=== PATIENT | female | born 1960 | race African-American/Black ===

== ENCOUNTER 2018-12-10 14:08 | Emergency (ER) | payer BC ==
[~2018-12-10] VITALS: Ht 165.1 cm; Wt 90.7 kg
[~2018-12-10 14:08] MED LIST: AMARYL4 MG PO; AMLODIPINE BESY10 MG PO; BENECALORI7.5 KCAL/1 PO; BISACODYL SUPP10 MG RECTAL; BUTALB-APAP-CA1 EACH PO; CARVEDILOL12.5 MG PO; CELEBREX 200 M200 M1 PO; CITRATE OF MAG296 ML PO; DIFLUCAN50 MG PO; GLIMEPIRIDE4 MG PO; HYDROCODONE-AP1 EAC6 PO; IBUPROFEN 600600 M1 PO; KEFLEX500 MG PO; LEVEMIR SUBQ; LEXAPRO 10 MG T10 M1 PO; LIPITOR40 MG PO; LISINOPRIL20 MG PO; LISINOPRIL5 MG PO; MAXZIDE-25 MG1 EACH PO; NITROGLYCERIN0.4 MG SUBLING; NITROSTAT0.4 MG SUBLING; PLAVIX 75 MG TA75 M1 PO; TESSALON PERLE100 MG PO; TUSSIONEX PENN115 ML PO; VIMPAT200 MG PO; XANAX 1 MG TABLE1 MG PO; ZOFRAN ODT4 MG DISSOLVE; ZOFRAN ODT4 MG PO
[2018-12-10] MEDS ORDERED: NORFLEX100 MG PO (15:37)
[2018-12-10] MEDS ORDERED: IBUPROFEN 600600 M1 PO (15:38)
[2018-12-10 15:59] VITALS: BP 203/98
== END 2018-12-10 16:00 | disposition home or self-care (01) ==
LOC: ER 14:08
DX: S39.012A Strain of muscle, fascia and tendon of lower back, initial encounter (principal); S86.811A Strain of other muscle(s) and tendon(s) at lower leg level, right leg, initial encounter; M25.551 Pain in right hip; G40.909 Epilepsy, unspecified, not intractable, without status epilepticus; E11.9 Type 2 diabetes mellitus without complications; I10 Essential (primary) hypertension; F41.9 Anxiety disorder, unspecified; Z90.49 Acquired absence of other specified parts of digestive tract; Z90.710 Acquired absence of both cervix and uterus; Z95.5 Presence of coronary angioplasty implant and graft; Z88.1 Allergy status to other antibiotic agents; Z88.5 Allergy status to narcotic agent; V89.2XXA Person injured in unspecified motor-vehicle accident, traffic, initial encounter; Y93.89 Activity, other specified; Y92.89 Other specified places as the place of occurrence of the external cause; Y99.8 Other external cause status

== ENCOUNTER 2019-03-31 14:46 | Inpatient (IN) | payer BC ==
[~2019-03-31] VITALS: Ht 165.1 cm; Wt 96.2 kg
[2019-03-31 14:15] VITALS: BP 191/83
[~2019-03-31 14:46] MED LIST changes: +NORCO 5-325 TA1 EAC1 PO; +NORFLEX100 MG PO; +TRESIBA100 UNIT/1 SUBQ
[2019-03-31 19:44] VITALS: BP 202/96
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
--- NOTE | 2019-03-31 20:14 | NUR ---
ASSUMED CARE @ 19:15, UP AD LARISA IN DAY ROOM AND HALLWAYS. COOPERATD WITH ASSESSMENT, DENIES PAIN, DENIES SI AND HI, DENIES HALLUCINATIONS. HRRR, LUNGS CTA, ABD NOTRMOACTIVE, REPORTS BM YESTERDAY. WILL CONTINUE TO MONITOR Q 12 MINUTES FOR PATIENT SAFETY.
--- NOTE | 2019-03-31 22:33 | NUR ---
FSBS 158 @ 21:16, GIVEN 30 U OF INSULIN GLARGINE (LANTUS). TOOK PO MEDS WHOLE WITH WATER, RETIRED TO BED. MESSAGE RELAYED THAT BROTHER CALLED, BUT DID NOT HAVE PATIENT'S CODE. CALL CAME IN AT 2200, PATIENT EXPLAINED PHONE CALL TIME RESTRICTIONS AND SHE AGREED TO CALL BROTHER IN THE MORNING. IN BED, ALARM SET, BED IN LOW POSITION, WILL CONTINUE TO MONITOR Q 12 MINTUES FOR PATIENT SAFETY.
[2019-03-31 23:11] VITALS: BP 202/96
--- NOTE | 2019-04-01 05:46 | NUR ---
SLEPT 6.6 HOURS OVERNIGHT.
[2019-04-01 08:00] VITALS: BP 183/92
--- NOTE | 2019-04-01 16:08 | NUR ---
PATIENT EXPRESSES SADNESS R/T LACK OF COMMUNICATION WITH CHILDREN. STATES SHE DOES NOT WANT TO CRY BECAUSE SHE THINKS THE STAFF WILL MAKE HER STAY LONGER. EDUCATED PATIENT ON SERVICES POST DISCHARGE AND AVAILABILITY OF PEOPLE TO TALK TO ABOUT CONCERNS. PATIENT HAD PT EVAL THIS SHIFT. FRIEND VISITED WITH PATIENT. PATIENT PARTICIPATED IN GROUPS THIS SHIFT AND WAS IN DINING ALATORRE VISITING WITH OTHER PATIENTS THROUGHOUT SHIFT. WENT TO ROOM ONLY FOR RESTROOM & TO CHANGE INTO FRESH CLOTHES.
[2019-04-01 21:06] VITALS: BP 230/172
--- NOTE | 2019-04-02 02:47 | NUR ---
ASSUMED CARE @ 19:15. BLOOD PRESSURE HIGH, ORDER OBTAINED FOR CLONADINE 0.2 MG BID, GAVE ONE DOSE @ 21:30, PRN HYDRALAUZINE 50 MG Q 6 HOURS PRN FOR SYSTOLIC GREATER THAN 160. ALSO MIRILAX PRN DAILY @ HS 17GM DOSE.
[2019-04-02 05:45] VITALS: BP 230/172
--- NOTE | 2019-04-02 06:13 | NUR ---
SLEPT 7.6 HOURS OVERNIGHT.
[2019-04-02 09:04] VITALS: BP 172/82
[2019-04-02 10:32] VITALS: BP 172/82
[2019-04-02] MEDS ORDERED: CATAPRES0.1 MG PO (10:37)
--- NOTE | 2019-04-02 10:38 | NUR ---
ASSUMED CARE THIS MORNING AT 0700. PT. IN BED BUT GOT UP AND INTO THE DINING ROOM FOR BREAKFAST. COOPERATIVE WITH TAKING HER MEDICATIONS WITHOUT DIFFICUTLY. LUNGS CTA, HRR. NO LE EDEMA NOTED. WAS ON THE UNIT FOR MONING MEETING. ATTENDED MORNING GROUP THIS MORNING. INFORMED THIS PROPERTY MAINTENANCE SUPERVISOR THAT THE PT. WOULD BE DISCHARGED TO HER HOME TODAY ABOUT 11:00 AM.
[2019-04-02] MEDS ORDERED: LANTUS100 UNIT/M SUBQ (10:40)
[2019-04-02] MEDS ORDERED: AMARYL4 MG PO (10:41)
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
[2019-04-02 11:44] VITALS: BP 172/82
--- NOTE | 2019-04-02 14:20 | NUR ---
Patient Name: KOBY MCCARTHY Admission Date: 03/31/19 DISCHARGE PLAN: Pt will d/c home Care Assessment: Pt was assessed by Dr. Alanis, and diagnosed with Major Depressive Disorder Level II Assessment: None Transportation: Pt will will be transported by [employer]. Special Instructions/Notes: Pt will need appointment with [facility] DISCHARGE TO FACILITY: Facility: Phone: Fax: Address: Contact Name: Phone: PCP: STEPHANY Psychiatrist: [facility] on March at 10:30am
--- NOTE | 2019-04-04 19:19 | D ---
[facility] [place] [address] DISCHARGE SUMMARY Name: KOBY MCCARTHY Room #: 522B-B [facility] IN M.R.#: [id number] Admission: 03/31/19 Attend Phys: Kyle Alanis DO Discharge: 04/02/19 Date of : 58 Report #: [id number] THIS REPORT FOR: //name// CC: Kyle Alanis Elisa Beyer DATE OF SERVICE: 04/02/2019 INPATIENT PSYCHIATRIC DISCHARGE SUMMARY ATTENDING PHYSICIAN: Kyle Alanis DO. COMMAND AND CONTROL OFFICER: Mono Francisco MD DISCHARGE DIAGNOSIS: Major depressive disorder, single episode, severe degree. MEDICAL COMORBIDITIES: Numerous and include obesity, coronary artery disease, hypertension, diabetes mellitus type 2, history of generalized seizure disorder. DIET: Diabetic 1800-calorie diet. MEDICATIONS: Clonidine 0.2 mg p.o. b.i.d. for hypertension, insulin glargine but she was taking 20 units subQ at bedtime, glimepiride 4 mg p.o. daily for breakfast, lacosamide which is Vimpat 200 mg p.o. b.i.d. for seizure disorder, Coreg 12.5 mg p.o. b.i.d., lisinopril 20 mg p.o. daily. It should be noted most of those were home medications. I had intended to start the patient on antidepressant, however, the patient was insistent on discharge in 2 days' time, so I will defer that to PHP program she will be going to. She has an appointment at [facility] on 04/07/2019 at 10:30. REASON FOR ADMISSION: Reported through suicide hotline she was suicidal, so directed to the ER. HOSPITAL COURSE: The patient was admitted to the Adult Psychiatry Unit. The patient was in somewhat of a frustrated state. She is currently . She is estranged from her 2 adult sons. 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 Spoke with her sister, there is a firearm and ammunition in her residence. The patient agreed for the sister to remove it and the sister did secure it. Emergency Room pharmacist called in to advise that, much of the individual sessions with the patient was spent discussing the steps, but I would recommend her taking given that she needs to stay busy, she needs to develop social support system, things such as this. [facility] [address] [place] [address] DISCHARGE SUMMARY Name: KOBY MCCARTHY Gurdeep Room #: 522B-B [facility] IN ..#: [id number] Admission: 03/31/19 Attend Phys: Kyle Alanis DO Discharge: 04/02/19 Date of : 58 Report #: [id number] LABORATORY DATA: Laboratories this admission are as follows: CMP within normal limits, except GFR 77. CBC was grossly normal. Urinalysis was grossly negative. PHYSICAL EXAMINATION: VITAL SIGNS: On the day of discharge, temperature 36.6, pulse 52, respirations 12, BP 172/82. MENTAL STATUS EXAMINATION: This is a well-developed, black female, appearing stated age. Attention intact. Concentration intact. Speech is normal in rate, volume, tone. Thought process is linear and goal directed. Thought content focused on discharge. No psychomotor agitation. No psychomotor retardation. Denied SI, HI. Some helplessness, some hopelessness. Denied homicidal intent or plan, suicidal intent or plan. Memory not formally tested. Insight limited. Judgment fair to limited. Fund of knowledge, no greater than average. PROGNOSIS: For this patient is guarded and will depend on her Wellness pursuits as well as psychiatric followup likely. <ELECTRONICALLY SIGNED> By: Kyle Alanis DO 04/04/19 1919 [id number] 0208 Kyle Alanis DO /nt
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
== END 2019-04-02 14:54 | disposition home or self-care (01) | DRG 885 ==
LOC: SBH 14:46
PROVIDERS: ADMIT Psychiatry & Neurology Psychiatry
DX: F32.2 Major depressive disorder, single episode, severe without psychotic features (principal); R45.851 Suicidal ideations; F41.9 Anxiety disorder, unspecified; F68.8 Other specified disorders of adult personality and behavior; E66.9 Obesity, unspecified; E11.9 Type 2 diabetes mellitus without complications; G40.909 Epilepsy, unspecified, not intractable, without status epilepticus; I25.10 Atherosclerotic heart disease of native coronary artery without angina pectoris; I25.2 Old myocardial infarction; Z95.5 Presence of coronary angioplasty implant and graft; Z83.3 Family history of diabetes mellitus; Z82.49 Family history of ischemic heart disease and other diseases of the circulatory system; Z90.710 Acquired absence of both cervix and uterus; Z90.49 Acquired absence of other specified parts of digestive tract; Z88.6 Allergy status to analgesic agent; Z88.1 Allergy status to other antibiotic agents; Z68.35 Body mass index [BMI] 35.0-35.9, adult
CPT/HCPCS: 10880

== ENCOUNTER 2020-01-04 09:30 | Inpatient (IN) | payer BC, OTHER ==
[~2020-01-04] VITALS: Ht 165.1 cm; Wt 71.9 kg
--- NOTE | ~2020-01-04 | EMS ---
[address] [address] EMS Patient Care Report Name: KOBY MCCARTHY Room #: PRE ER M.R.#: [id number] Admission: Attend Phys: Discharge: Date of : 58 Report #: [id number] THIS REPORT FOR: //name// Report Transmitted: 01/04/2020 08:48 EMS Care Summary [place], [place]/[facility] Incident [id number] @ 01/04/2020 09:05 Incident Location [address] A1-2 Patient KOBY MCCARTHY Female, 59 Years 1960 Patient Address Patient History Pacemaker/AICD,Stroke/CVA, Patient Allergies Morphine, Chief Complaint ALTERED MENTAL STATUS Disposition Transported No Lights/[place] Dispatch Reason Sick Person Transported To [facility] Narrative M28 ARRIVES TO FIND 59 Y/O F PT EXPERIENCING LETHARGY AND APHASIA AFTER BEING WOKEN UP THIS MORNING. PT LAST SEEN NORMAL AT 1900 LAST NIGHT. ASSESSMENTS AND TREATMENTS NOTED. PT MOVED TO COT VIA DRAWSHEET METHOD. PT MOVED TO AMBULANCE. PT TRANSPORTED. M28 ARRIVES AT DESTIATION. PT MOVED TO ROOM IN ED. PT MOVED TO BED IN ROOM VIA DRAWSHEET METHOD. PT CARE TRANSFERRED. M28 RETURNS TO SERVICE. Initial Vitals [address] [address] EMS Patient Care Report Name: KOBY MCCARTHY Room #: PRE [facility]#: [id number] Admission: Attend Phys: Discharge: Date of : 58 Report #: [id number] @09:21P: 102,CO: 0,SpO2: 94, @09:22P: 100,R: 18,BP: 108/73,Pain: 0/10,GCS: 12,SpO2: 93,Revised Trauma: 11, @09:14P: 101,R: 18,BP: 111/74,Pain: 0/10,GCS: 12,Temp: 99.4F,Glucose: 203,Revised Trauma: 11, Assessments @09:12MENTAL:Confused,SKIN:Hot,HEENT:LUNG SOUNDS:ABDOMEN:PELVIS//GI:EXTREMITIES:Left Leg: Paralysis,Left Arm: Paralysis,Right Arm: Weakness,Right Leg: Weakness,PULSE:NEURO:@09:22MENTAL:Confused,SKIN:Hot,HEENT:Head/Face: No Abnormalities,Eyes: No Abnormalities,Neck/Airway: No Abnormalities,LUNG SOUNDS:General: No Abnormalities,Left Upper: No Abnormalities,Right Upper: No Abnormalities,Left Lower: No Abnormalities,Right Lower: No Abnormalities,ABDOMEN:General: No Abnormalities,Left Upper: No Abnormalities,Right Upper: No Abnormalities,Left Lower: No Abnormalities,Right Lower: No Abnormalities,PELVIS//GI:No Abnormalities,EXTREMITIES:Left Arm: Paralysis,Right Arm: Weakness,Left Leg: Paralysis,Right Leg: Weakness,PULSE:NEURO:No Abnormalities, Impression Altered Mental Status Procedures @09:12ALS AssessmentResponse: UnchangedSucceeded@09:123-Lead ECGResponse: UnchangedSucceeded@09:20Saline Lock 0cc (20 ga) Site: Hand-RightResponse: UnchangedSucceeded Timeline 09:04,Call Received 09:04,Dispatch Notified 09:05,Dispatched 09:06,En Route 09:10,On Scene 09:12,At Patient 09:12,ALS Assessment,Response: UnchangedSucceeded, 09:12,3-Lead ECG,Response: UnchangedSucceeded, 09:14,BP: 111/74 M,PULSE: 101,RR: 18 R,SPO2: Ox,ETCO2: ,B,PAIN: 0,GCS: 12, 09:20,Saline Lock 0cc 20 ga Site: Hand-Right,Response: UnchangedSucceeded, 09:21,BP: 106/ M,PULSE: 102,RR: R,SPO2: 94 Ox,ETCO2: ,BG: ,PAIN: ,GCS: , 09:22,BP: 108/73 M,PULSE: 100,RR: 18 R,SPO2: 93 Ox,ETCO2: ,BG: ,PAIN: 0,GCS: 12, 09:24,Depart Scene 09:30,At Destination 09:36,Call Closed [facility] [address] [place] [address] EMS Patient Care Report Name: KOBY MCCARTHY Room #: PRE M.R.#: [id number] Admission: Attend Phys: Discharge: Date of : 58 Report #: [id number] Disclaimer v1.1 Copyright 2020 [employer] This EMS Care Summary contains data elements from the applicable legal record (which may be displayed differently). It is designed to provide pertinent information for the following purposes: continuity of care, clinical quality, and state data reporting. The complete legal record is available to ED staff and administrators of the receiving hospital in [employer] Patient Tracker. All data is provided "as is."
[~2020-01-04 09:30] MED LIST changes: +CATAPRES0.1 MG PO; +LANTUS100 UNIT/M SUBQ
[2020-01-04 09:31] VITALS: BP 107/64
[2020-01-04 09:55] LABS: HEMATOCRIT 34.4 % (37.0-47.0); HEMOGLOBIN 11.6 gm/dL (12.0-15.0); MCHC 33.7 g/dL (28.0-37.0); MCV 74.2 fL (80.0-100.0); PLATELET COUNT 262 thou/uL (150-400); RBC 4.64 mil/uL (4.20-5.00); WBC 21.4 thou/uL (4.0-11.0)
[2020-01-04 10:00] LABS: ANION GAP 7 mmol/L (7-16); BUN 25 mg/dL (7-18); CALCIUM 10.3 mg/dL (8.5-10.1); CHLORIDE 98 mmol/L (98-107); CO2 31 mmol/L (21-32); GLUCOSE 170 mg/dL (74-106); POTASSIUM 3.1 mmol/L (3.5-5.1); SODIUM 136 mmol/L (136-145)
[2020-01-04 10:06] LABS: ALBUMIN 3.4 g/dL (3.4-5.0); DIRECT BILIRUBIN < 0.1 mg/dL (<0.1-0.2); SGOT 15 U/L (15-37); SGPT 19 U/L (30-65); TOTAL BILIRUBIN 0.7 mg/dL (<0.1-1.0); TOTAL PROTEIN 7.7 g/dL (6.4-8.2)
[2020-01-04 10:18] LABS: URINE BILIRUBIN NEGATIVE (Negative); URINE BLOOD NEGATIVE (Negative); URINE CLARITY CLEAR; URINE COLOR YELLOW; URINE GLUCOSE-RANDOM* NEGATIVE (Negative); URINE KETONES NEGATIVE (Negative); URINE LEUKOCYTES-REFLEX NEGATIVE (Negative); URINE NITRITE-REFLEX NEGATIVE (Negative); URINE PROTEIN (DIPSTICK) NEGATIVE (Negative); URINE UROBILINOGEN 0.2 E.U./dl (0.2-1.0)
[2020-01-04] MEDS ORDERED: ACETAMINOPHEN325 MG RECTAL (10:35)
[2020-01-04 10:36] LABS: AMP/METHAMP Negative (Negative); BARBITURATES Negative (Negative); BENZODIAZEPINES Negative (Negative); COCAINE Negative (Negative); METHADONE Negative (Negative); OPIATES Negative (Negative); PCP Negative (Negative)
[2020-01-04] MEDS ORDERED: MILK OF MA400 MG/5 M PO (10:38)
[2020-01-04] MEDS ORDERED: BIOFREEZE118 ML TOP (10:39)
[2020-01-04] MEDS ORDERED: MUCINEX600 MG PO (10:40)
[2020-01-04] MEDS ORDERED: MIRALAX119 GM PO (10:40)
[2020-01-04] MEDS ORDERED: SENNA PLUS TAB1 EACH PO (10:40)
[2020-01-04] MEDS ORDERED: TRAMADOL 50 MG50 MG PO (10:41)
[2020-01-04] MEDS ORDERED: BUSPIRONE HCL10 MG PO (10:41)
[2020-01-04] MEDS ORDERED: VOLTAREN GEL 1100 G1 TOP (10:41)
[2020-01-04] MEDS ORDERED: SUPER THERAVIT1 EACH PO (10:41)
[2020-01-04] MEDS ORDERED: ELIQUIS5 MG PO (10:42)
[2020-01-04] MEDS ORDERED: CHLORTHALIDONE25 MG PO (10:42)
[2020-01-04] MEDS ORDERED: ZOLOFT100 MG PO (10:42)
[2020-01-04] MEDS ORDERED: ASA81BEC PO (10:42)
[2020-01-04] MEDS ORDERED: CORRECTOL5 M1 PO (10:42)
[2020-01-04 11:57] LABS: ANISOCYTOSIS 1+; MICROCYTES 1+
--- NOTE | 2020-01-04 13:30 | NUR ---
Roselia, Nurse at [facility] updated on patient status. Call back [phone]
[2020-01-04 13:55] VITALS: BP 130/77
[2020-01-04 14:01] VITALS: BP 136/70
--- NOTE | 2020-01-04 14:03 | NUR ---
DARRYL ([facility]) [phone]
--- NOTE | 2020-01-04 14:31 | EKG ---
[facility] [place] [address] ELECTROCARDIOGRAM REPORT Name: KOBY MCCARTHY Room #: 170-10 ADM IN M.R.#: [id number] Admission: 01/04/20 Attend Phys: Derek Lofton MD Discharge: Date of : 58 Report #: [id number] THIS REPORT FOR: cc: Derek Lofton MD, Ramilo MD Park,Morro Gold MD ~ THIS REPORT FOR: //name// [facility] ED Test Date: 2020-01-04 Test Time: 09:54:55 Pat Name: KOBY MCCARTHY Department: Room: 170 Gender: F Train Operations Manager: yariel : 1960 Requested By: Alexa Mireles Order Number: [id number] MD: Morro Martino Measurements Intervals [place] Rate: 97 P: 8 VT: 199 QRS: -10 QRSD: 90 T: 239 QT: 338 QTc: 430 Interpretive Statements Sinus rhythm Borderline prolonged VT interval Abnormal R-wave progression, early transition LVH by voltage Nonspecific T abnormalities, diffuse leads No previous ECG available for comparison Electronically Signed On 01-04-2020 14:29:55 CDT by Morro Martino [email or web address] <ELECTRONICALLY SIGNED> By: Morro Martino MD 01/04/20 1429 [id number] Morro Martino MD /EPI
[2020-01-04 14:39] VITALS: BP 138/75
--- NOTE | 2020-01-04 18:32 | NUR ---
VISITED PT ON 3W AND COMPLETED SWALLOW SCREEN, PT PASSED, NOTIFIED NURSE AT THIS TIME OF PASSING SWALLOW SCREEN AND NO LONGER NEED TO KEEP HER NPO.
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
[2020-01-04 19:50] VITALS: BP 158/94
--- NOTE | 2020-01-04 23:19 | NUR ---
PT CALLED OUT AT THE BEGINNING OF THE SHIFT TO BE REPOSITIONED. PT WAS IN PAIN, TYLENOL WAS GIVEN, PT WAS TURNED, BOTTOM WAS ASSESSED, BM WAS CLEANED UP, BARRIER CREAM WAS PROVIDED, LINENS WERE STRAIGHTENED, PT WAS STRAIGHTENED, PT WAS PLACED IN A NEW COMFORTABLE POSITION. NO CHANGES IN PHYSICAL STATUS FROM YESTERDAY. PT IS STILL ENCOURAGED TO DO MUCH POSSIBLE, AND AT TIMES THIS MEANS PT HAS TO EXERT A LITTLE MORE ENERGY THAN THE DAY BEFORE. FORWARD PROGRESS IS BEING MADE, PT WANTED TO SPEAK WITH THE GRANDSON, GRANDSON WAS ABLE TO BE REACHED AROUND 1030PM AND BOTH SPOKE OVER THE PHONE WHILE RN WAS REPOSITIONING THE PT. NO COMPLAINTS AT THIS TIME. LO AIRLOSS MATTRESS IS IN PLACE. SCDS ARE ON, FALL PRECAUTIONS ARE IN PLACE. FLUIDS ARE BEING PROVIDED WITH THICKENER ADDED OF COURSE. WILL CONTINUE TO MONITOR.
[2020-01-05 04:48] VITALS: BP 140/73
--- NOTE | 2020-01-05 06:32 | NUR ---
ASSUMED CARE AT 1900. PT CALLING OUT CONSTANTLY, YELLING. DIFFICULT TO REDIRECT; WHILE IN ROOM, PT MAKING FREQ STATEMENTS ABOUT VARIOUS SPOTS THAT HURT (INCLUDING LEGS AND ABD), THAT SHE WANTS TO TALK TO HER SON, THAT SHE DOESN'T WANT TO , ETC... WHEN ASKED DIRECTLY WHERE SHE HAS PAIN, SHE SAID SHE DOESN'T HURT. DENIED SOB OR NAUSEA. LARGE AMOUNT OF INCONT URINE; PLACED AN EXTERNAL CATHETER. Q2 TURNS, PRAFO BOOT ON LEFT FOOT ONLY. NO OTHER CONCERNS, WILL CONTINUE TO MONITOR.
[2020-01-05 08:18] VITALS: BP 139/89
[2020-01-05 12:21] VITALS: BP 130/89
--- NOTE | 2020-01-05 13:51 | NUR ---
INITIAL ASSESSMENT: SW reviewed chart and spoke with nursing. Pt was admitted from [facility] due to AMS. Pt is in Enhanced Isolation to r/o COVID-19. Pt's first test is negative. Repeat test ordered. Pt with hx of CVA with left sided weakness/seizure disorder/anxiety. Pt was in [facility] in March of 2019 with dx of Major Depressive Disorder. REANNA called pt in room. No answer. REANNA left voice messages for pt's son, Naveen ([phone]) and friend, Jessica ([phone]). Per chart, pt uses a w/c for mobility. SW faxed clinical info to [facility] and left voice message for Gita in admissions at [facility]. Pt will need therapy evaluations when pt is able to participate. REANNA is following to assist as needed with discharge planning.
[2020-01-05 16:30] VITALS: BP 131/83
--- NOTE | 2020-01-05 19:49 | NUR ---
PT IS A&OX2 ( PERSON AND PLACE), PT IS IV FLIUS AND IV ABX, PT'S VS ARE STABLE, PT STARTS EATING AND DRINKING WITH ASSIST, PT DENIES SOB AND N/V TODAY, PT HAS SECOND COVID TEST AT 1700PM.
--- NOTE | 2020-01-05 19:53 | NUR ---
PT'S FIST TIME COVID TEST WAS POSITIVE, PT HAS SECOND TIME COVI TEST AT TODAY 1700PM , PT CAME FROM SNF.
[2020-01-05 20:27] VITALS: BP 146/94
--- NOTE | 2020-01-06 01:11 | NUR ---
WHEN RN FIRST ASSESSED THE PT, PT WAS IRRITABLE AND HOSTILE. PT WAS SEEN LAYING ON HER R SIDE. VS WERE STABLE, BLOOD SUGAR LEVEL WAS NORMAL WELL. PT WAS CHANGED, BACK CARE WAS PROVIDED, Q2H TURNS HAVE BEEN ENFORCED. ORANGE TUBE CREAM WAS APPLIED TO THE PRESSURE WOUND ON THE COCCYX AREA. NEW LINENS WERE ALSO PROVIDED BY THE RN. WOUND CARE MD IS TO SEE THE PT TOMORROW. FOR PROPHYLACTIC MEASURE AND PER PROTOCOL THIS RN ORDERED LO AIRLOSS MATTRESS PUMP AND WILL INITIATE THE PUMP SOON AVAILALBE. PT HAVE BEEN RUNNING TACHY TO NORMAL SINUS THIS SHIFT. NO OTHER SIGNIFICANT FINDINGS WERE DISCOVERED. IV ABX BEING ADMINISTERED, SCHEDULED MEDICATIONS PROVIDED PER ORDER. AND FOLLOWING POC. WILL AWAIT FUTURE PLANS.
[2020-01-06 06:45] VITALS: BP 140/85
[2020-01-06 08:34] VITALS: BP 129/80
--- NOTE | 2020-01-06 10:50 | NUR ---
REANNA reviewed chart and spoke with nursing. Pt remains in Enhanced Isolation. Pt's second COVID test is pending. First test was negative. REANNA spoke with pt's son, Naveen, via phone yesterday afternoon to confirm plan is for pt to return to [facility] when medically stable. Per Naveen, pt may have [place]-Medicaid as a secondary insurance. REANNA notified UR RN. Pt will need therapy evals when able to participate. REANNA is following to assist as needed with discharge planning.
--- NOTE | 2020-01-06 13:14 | NUR ---
DR SAMUEL MEI STATES PATIENT MAY BE OUT OF ISOLATION...
[2020-01-06 14:59] LABS: HEMATOCRIT 31.4 % (37.0-47.0); HEMOGLOBIN 10.4 gm/dL (12.0-15.0); MCHC 33.1 g/dL (28.0-37.0); MCV 75.6 fL (80.0-100.0); RBC 4.15 mil/uL (4.20-5.00); RDW 14.7 % (10.5-14.5); WBC 14.4 thou/uL (4.0-11.0)
[2020-01-06 15:11] LABS: CALCIUM 9.2 mg/dL (8.5-10.1); CREATININE 0.9 mg/dL (0.6-1.0); POTASSIUM 3.1 mmol/L (3.5-5.1)
[2020-01-06 15:42] VITALS: BP 162/97
[2020-01-06 19:50] VITALS: BP 173/100
--- NOTE | 2020-01-06 20:06 | NUR ---
ASSUMED CARE OF PATIENT APPROX 1500. A&OX2, VSS, DENIES PAIN. BARRIER CREAM APPLIED TO COCCYX. PATIENT HAD BM TODAY. PATIENT HAS LEFT SIDED WEAKNESS. NO SIGNS OF DISTRESS. WILL CONTINUE TO MONITOR.
--- NOTE | 2020-01-07 07:19 | NUR ---
PROGRESS PT A/O X3 TO 4 CONFUSED AT TIMES. VSS, FEMALE EXTERNAL CATHETER IN PLACE, REPOSITIONED Q2HRS. IV ZOSYN CONTINUES WOUND TO BACK QUARTER SIZED, WITH SCANT BLOODY DRAINAGE HAS SLOUGH MATERIAL AND A BL[facility] [employer] SPECIALIST BARRIER CREAM APPLIED PROFO BOOTS AND SCD'S IN PLACE CONTINUE POC.
[2020-01-07 07:43] VITALS: BP 143/76
--- NOTE | 2020-01-07 13:56 | NUR ---
FAXED CLINICAL UPDATE TO [facility] RECEIVED CONFIRMATION AND LEFT MSG WITH BRITTANIE IN ADM.
--- NOTE | 2020-01-07 14:29 | NUR ---
THERAPY ORDERED THIS AM CLINICAL INFO SENT TO [facility]. THERAPY EVALS TO BE SENT ONCE ENTERED. CM FOLLOWING O GET PT TO [facility] SKILLED ONCE MEDICALLY STABLE.
[2020-01-07 16:39] VITALS: BP 158/84
--- NOTE | 2020-01-07 17:51 | NUR ---
PT IS AOX2, VSS, GENERALIZED PAIN CONTROLLED WITH ORAL ANALGESIC. PT WORKED WITH PT/OT TODAY. APPETITE IS POOR, SUPPLEMENT ADDED. PT IV PATENT RIGHT/SL. IV ANTIBIOTIC RECEIVED ORDERED. PT CALL APPROPRIATELY, WILL CONTINUE TO MONITOR.
[2020-01-07 20:22] VITALS: BP 155/84
[2020-01-08 04:07] VITALS: BP 159/94
--- NOTE | 2020-01-08 08:08 | NUR ---
progress pt alert and oriented, vss. denies pain at this time had difficulty assisting turns today may need some upper extremetity therapy to strengthen upper body. has a pressure ulcer to lower back circular and has a pink ring then a white slough tissue area and the center is black and scab like in appearance. repositioned q2hrs and as requested. slept most of shift continue poc.
[2020-01-08 08:51] VITALS: BP 148/83
--- NOTE | 2020-01-08 14:55 | NUR ---
SURGERY WAS CONSUTED FOR POSSIBLE I&D THIS DAY. STILL AWAITING DETERMINATION IF PT REQUIRES SURGIVAL INTERVENTION. ORDER FOR LABS IN THE AM. SHOULD PT BE FOUND TO BE MEDICALLY STABLE TO DC BACK TO [facility] OVER THE WEEKEND CALL RENETTA AT OR BRITTANIE AT TO ASSIST WITH FACILITATING DC. FAX ORDERS TO . REPORT TO BE CALLED TO .
[2020-01-08 15:00] VITALS: BP 135/86
[2020-01-08 19:41] VITALS: BP 129/71
--- NOTE | 2020-01-08 19:59 | NUR ---
Assumed pt care this am, blood sugar checks done, diet and medication are tolerated well. Incontinent of both bowel and bladder. Wound seen by surgery Dr. Garcia tried to drain the wound on the bed side, informed me he will most probably do the i and d tomorrow awaiting orders. Q2 turns done through oput hte shift, bed bath given. Son updated. POC followed iwth no lsigns or verbalizatons of distress noted.
--- NOTE | 2020-01-09 04:05 | NUR ---
Pt. rested quietly during the night when checked on during frequent rounds. She offers no c/o pain. Pt. turned and repositioned. Bed alarm is on.
[2020-01-09 05:40] LABS: HEMATOCRIT 29.2 % (37.0-47.0); HEMOGLOBIN 9.8 gm/dL (12.0-15.0); MCH 25.6 pg (26.0-34.0); MCHC 33.7 g/dL (28.0-37.0); MCV 75.9 fL (80.0-100.0); RBC 3.85 mil/uL (4.20-5.00); WBC 10.2 thou/uL (4.0-11.0)
[2020-01-09 05:58] LABS: CREATININE 0.8 mg/dL (0.6-1.0); POTASSIUM 3.2 mmol/L (3.5-5.1)
[2020-01-09 07:18] VITALS: BP 128/74
[2020-01-09 15:26] VITALS: BP 149/90
--- NOTE | 2020-01-09 16:07 | NUR ---
PT IS AXO2-3, TEARFUL AT TIMES. PT VSS, BS CHECKED BEFORE MEALS. PT TURNED Q2HR, APPETITE IS FAIR. PICC LINE PLACEMENT WAS ORDERED. PT INCONTINENT OF B/B. EXTERNAL CATH IN PLACE, MEDICATION RECEIVED CRUSHED IN APPLESAUCE. CALL LIGHT IN REACH, WILL CONTINUE TO MONITOR.
--- NOTE | 2020-01-09 16:21 | NUR ---
CONSULTED TO PLACE A MIDLINE FOR A PATIENT ON ZOSYN IV ABX. SPOKE TO THE PATIENT AND EXPLAINED PROCEDURE. VERBAL CONSENT OBTAINED AND A 4F POWER MIDLINE WAS PLACED PER HOSPITAL POLICY. LINE WAS TRIMMED TO 12CM AND ADNACED WITHOUT DIFFICULTY. LINE WAS SECURED AND RELEASED FOR USE
[2020-01-09 19:15] VITALS: BP 153/94
--- NOTE | 2020-01-10 06:00 | NUR ---
Pt. rested quietly at short intervals during the night when checked on during frequent rounds. Treatment done to coccyx wound and she was turned and repositioned. No c/o pain. Bed alarm is on.
[2020-01-10 08:00] VITALS: BP 183/89
[2020-01-10 08:50] VITALS: BP 154/94
--- NOTE | 2020-01-10 16:52 | NUR ---
Assumed patient care at 0715. she is a "total care" patient although she can use her right hand to eat and drink, after meal is "set up" her. LSCTA, BS x's 4, abdomen is soft and non-tender. Patient has dressing in place to her sacral area. Dressing changed per Dr Ramirez with assist of this nurse. Patient has been very anxious, has been given Lorazepam 0.25mL as needed with effectiveness. Patient has also been given Tramodol 50 mg po q 8 hours for generalized pain. Pain medication has been helpful. Prafo boots are in place to bilateral feet. Will continue to monitor.
[2020-01-10 19:58] VITALS: BP 160/95
--- NOTE | 2020-01-11 03:40 | NUR ---
patient aox2.Patient denied pain or discomfort. patient turned q 2 hours, pericare and barrier cream applied as needed. fall precaution in place. patient in bed asleep at this time breathing regular and unlaboured.
[2020-01-11 04:07] LABS: GLYCOHEMOGLOBIN (HGB A1C) 7.2 % (4.8-5.6)
[2020-01-11 05:05] VITALS: BP 151/96
[2020-01-11 09:31] VITALS: BP 164/101
--- NOTE | 2020-01-11 13:15 | NUR ---
FAXED CLINICAL UPDATE TO [facility] SPOKE WITH BRITTANIE IN ADM SHE RECEIVED UPDATE AND WILL SUBNIT FOR AUTH FOR SKILLED STAY.
--- NOTE | 2020-01-11 15:43 | NUR ---
CM SPOKE WITH PT'S SON THIS AFTERNOON HE IS AWARE WE ARE AWAITING INSURANCE AUTH FOR PT TO RETURN SKILLED UNDER INSURANCE FOR CONTINUED IV ABX AND WOUND CARE. FACILITY SUBMITTED TODAY. CM TO FOLLOW INDICATED WITH DC PLANNING.
--- NOTE | 2020-01-11 20:12 | NUR ---
Assumed pt care this am, elevatged bp noted pt refused to take some medication through out the shift. Wound dressing change done, q2 turns doen through out the day. 2 bowel movements have been noted. Mood swings have been noted and pt tensd to be emotional and needy. POC followed with no signs or verbalizations of distress noted, son was updated on the status.
[2020-01-11 21:22] VITALS: BP 150/84
[2020-01-12 04:51] VITALS: BP 176/102
--- NOTE | 2020-01-12 07:34 | NUR ---
RECIEVED CARE OF THIS PATIENT AT 1900. PATIENT ALERT AND ORIENTED TO PERSON AND SITUATION. PATIENT REMAINS ON BEDREST. HAS WOUND ON SACRUM, DRESSING WAS CHANGED D/T BEING SOILED. DENIES PAIN. HAS EXTERNAL CATH. L SIDE FLACCID. HAS PACEMAKER. HAS MIDLINE IN HOSSEIN AND PIV IN RW. SLEPT VERY LITTLE THIS SHIFT.
[2020-01-12 08:35] VITALS: BP 184/113
[2020-01-12 08:55] VITALS: BP 173/102
[2020-01-12] MEDS ORDERED: LISINOPRIL20 MG PO (13:53)
[2020-01-12] MEDS ORDERED: AUGMENTIN 875-1 EACH PO (13:54)
[2020-01-12] MEDS ORDERED: METOPROLOL SUCC50 MG PO (13:55)
[2020-01-12] MEDS ORDERED: IRON325 PO (13:55)
--- NOTE | 2020-01-12 15:30 | NUR ---
SPOKE WITH BRITTANIE IN ADM AT [facility] SHE RECEIVED AUTH. FAXED DC ORDERS/SUMMARY TO FACILITY BRITTANIE RECEIVED ORDERS AND [facility]. MOTIFIED PT'S SON (DARRYL) OF DC AND TIME OF TRANSPORT HE ASKED IF PT IS DISCHARGING WITH IV ABX AND PT HAS BEEN SWITCHED TO PO AUGMENTIN. UNIT NOTIFIED AND CHART COPY PER US. RN TO CALL REPORT TO [phone].
--- NOTE | 2020-01-12 15:31 | NUR ---
CARE TEAM INDICATED THAT PT IS MEDICALLY STABLE TO DISCHARGE SKILLED BACK TO [facility] THIS DAY. FACILITY HAD RECIEVED INSURANCE AUTH. CHART COPY ORDERED. STRETCHER VAN TRANSPORT ARRANGED FOR 1630. PT'S SON NOTIFIED. REPORT TO BE CALLED TO . NO OTHER CM INTERVENTION INDICATED. CASE CLOSED.
[2020-01-12 16:20] VITALS: BP 173/102
--- NOTE | 2020-01-12 16:47 | NUR ---
Assumed pt care at 7am.Pt in bed most of the time today sleeping on and off. Assessment completed.Pt alert and oriented to person and place only.Assisted with tray set up,Fair appetite.Repositione for comfort q2h.Dr Lofton here,dc order noted.clinical study manager arranged for transport.Pt was crying and reported that her handbag was missing.Son called by security and said that pt handbag was left at the nsg.Drsg change done to coccyx as ordered.At 1647,pt left per ambulance to [facility].
--- NOTE | 2020-01-12 17:23 | HC ---
[facility] [place] [address] CONSULTATION Name: KOBY MCCARTHY Room #: 458-P [facility] IN M.R.#: [id number] Admission: 01/04/20 Attend Phys: Derek Lofton MD Discharge: 01/12/20 Date of : 58 Report #: [id number] THIS REPORT FOR: cc: Derek Lofton MD,Derek Blank,Taye Vazquez MD ~ CC: Derek Lofton DATE OF SERVICE: 01/07/2020 CHIEF COMPLAINT: Sacral pressure ulceration. HISTORY OF PRESENT ILLNESS: This is a 59-year-old female patient who is a resident at [facility]. She has a history of cerebrovascular accident with left hemiplegia. She was admitted with decreased level of consciousness. She was noted to have a sacral ulceration. I have been asked to see her with regard to wound care. The patient cannot provide any significant information about herself. PAST MEDICAL HISTORY: Positive for diabetes mellitus, hypertension, seizure disorder, cerebrovascular accident and previous pacemaker placement. SOCIAL HISTORY: Positive for being a previous cigarette smoker. No alcohol use. FAMILY HISTORY: Noncontributory. MEDICATIONS: Include insulin, Vimpat, Biofreeze, Mucinex, MiraLax, senna, Voltaren gel, buspirone, Ultram, chlorthalidone, Eliquis, baby aspirin, Zoloft. ALLERGIES: ERYTHROMYCIN and MORPHINE. REVIEW OF SYSTEMS: Not obtainable due to the patient's level of consciousness. PHYSICAL EXAMINATION: VITAL SIGNS: At this time include temperature 36.7, pulse 83, respiratory rate 18, blood pressure 143/76. GENERAL: This is a chronically ill-appearing female patient who appears to be in no obvious distress. HEENT: Head normocephalic. Nose and throat clear. NECK: Supple. LUNGS: Clear. HEART: Regular rhythm. ABDOMEN: Soft. EXTREMITIES: Examination of the gluteal sacral region demonstrates what appears to be an unstageable pressure ulceration. There is a little bit of induration [facility] [address] [place] [address] CONSULTATION Name: KOBY MCCARTHY Gurdeep Room #: 458-[facility] IN M.R.#: [id number] Admission: 01/04/20 Attend Phys: Derek Lofton MD Discharge: 01/12/20 Date of : 58 Report #: [id number] in this area and mild tenderness throughout. Some eschar present on the surface. No obvious fluctuance. NEUROLOGIC: The patient has left sided weakness. She is slow to answer questions. LABORATORY DATA: Includes sodium 139, potassium 3.1, chloride 105, CO2 of 26, BUN 17, creatinine 0.9, albumin 3.4. White blood cell count 14.1, hemoglobin 10.4. CLINICAL IMPRESSION: 1. Unstageable sacral pressure ulceration, doubt underlying abscess. 2. History of cerebrovascular accident with left-sided hemiparesis. 3. Type 2 diabetes mellitus. 4. Hypertension. 5. Seizures. RECOMMENDATIONS: At this point in time, we will recommend topical Z-Guard and bordered foam, to be changed daily and p.r.n. low air loss mattress q. 2 hour turning positioning. Continue management of her underlying medical problems with current medication regimen. Physical therapy as appropriate, nutrition to maximize wound healing. I appreciate being asked to see her in consultation. <ELECTRONICALLY SIGNED> By: Taye Blank MD 01/12/20 1723 1817 12 Taye Blank MD /nt
== END 2020-01-12 16:46 | DRG 871 ==
LOC: ER 09:30 → 3W 13:11 → EROBS 13:11 → 4W 13:11 → 3W 15:20 → 4W 01-06 15:27
PROVIDERS: Emergency Medicine; Internal Medicine Infectious Disease; ADMIT Internal Medicine
PROC: 0HB6XZZ Excision of Back Skin, External Approach (ICD-10-PCS; principal; 2020-01-09)
PROC: 02HV33Z Insertion of Infusion Device into Superior Vena Cava, Percutaneous Approach (ICD-10-PCS; principal; 2020-01-09)
DX: A41.9 Sepsis, unspecified organism (principal); G93.41 Metabolic encephalopathy; I69.354 Hemiplegia and hemiparesis following cerebral infarction affecting left non-dominant side; L03.818 Cellulitis of other sites; L03.315 Cellulitis of perineum; R10.84 Generalized abdominal pain; G40.409 Other generalized epilepsy and epileptic syndromes, not intractable, without status epilepticus; E87.6 Hypokalemia; D64.9 Anemia, unspecified; X58.XXXA Exposure to other specified factors, initial encounter; I25.119 Atherosclerotic heart disease of native coronary artery with unspecified angina pectoris; S31.819A Unspecified open wound of right buttock, initial encounter; I10 Essential (primary) hypertension; L89.150 Pressure ulcer of sacral region, unstageable; E11.9 Type 2 diabetes mellitus without complications; Z79.4 Long term (current) use of insulin; Z95.0 Presence of cardiac pacemaker; Z79.899 Other long term (current) drug therapy; Z79.82 Long term (current) use of aspirin; Z88.5 Allergy status to narcotic agent; Z87.891 Personal history of nicotine dependence; Z90.710 Acquired absence of both cervix and uterus; Z83.3 Family history of diabetes mellitus; Y93.9 Activity, unspecified; Y92.89 Other specified places as the place of occurrence of the external cause; Y99.8 Other external cause status
CPT/HCPCS: 10040; 10879

== ENCOUNTER 2020-01-22 15:00 | Inpatient (IN) | payer BC, OTHER ==
[~2020-01-22] VITALS: Ht 165.1 cm; Wt 81.3 kg
[~2020-01-22 15:00] MED LIST changes: +ACETAMINOPHEN325 MG RECTAL; +ASA81BEC PO; +AUGMENTIN 875-1 EACH PO; +BIOFREEZE118 ML TOP; +BUSPIRONE HCL10 MG PO; +CHLORTHALIDONE25 MG PO; +CORRECTOL5 M1 PO; +ELIQUIS5 MG PO; +IRON325 PO; +METOPROLOL SUCC50 MG PO; +MILK OF MA400 MG/5 M PO; +MIRALAX119 GM PO; +MUCINEX600 MG PO; +SENNA PLUS TAB1 EACH PO; +SUPER THERAVIT1 EACH PO; +TRAMADOL 50 MG50 MG PO; +VOLTAREN GEL 1100 G1 TOP; +ZOLOFT100 MG PO
[2020-01-22 18:11] VITALS: BP 136/76
--- NOTE | 2020-01-22 19:37 | NUR ---
ALERT AND ORIENTED X 2, LUNGS CLEAR-ROOM AIR. DR DAVENPORT TO BEDSIDE, AWAITING ORDERS. TOLERATING PO FLUIDS WITHOUT DIFFICULTY. FALL PRECAUTIONS IN PLACE.
[2020-01-22 20:00] VITALS: BP 149/74
--- NOTE | 2020-01-22 23:31 | NUR ---
ASSUMED CARE OF PT AT APPROXIMATELY 1900. PT IS A/O X2. WOUND CARE COMPLETED. ALL DRESSINGS CHANGED AND ARE CURRENTLY DRY AND INTACT WITH NO DRAINAGE. NOC MEDICATIONS GIVEN DIRECTED. TX PT TO MED-SURG TELEMETRY PER PHYSCIAN ORDERS.
[2020-01-22 23:59] VITALS: BP 135/82
--- NOTE | 2020-01-23 03:47 | NUR ---
PATIENT AOX1 CONFUSED AND FORGETFUL. PATIENT INCONTINENT PERICARE AND BARRIER CREAM APPLIED NEEDED. PATIENT TURNED Q 2 HOURS. DAUGHTER JAKE CALLED AND UPDATED ABOUT THE PATIENT. DAUGHTER SAYS PATIENT GETS NUMB ON BLE AND WANT PATIENT TO BE ON IRON INFUSION BEFORE DISCHARGE. WILL BE NOTIFIED IN THE AM. PATIENT IN BED ASLEEP AT THIS TIME BREATHING REGULAR AND UNLABOURED.
--- NOTE | 2020-01-23 03:53 | NUR ---
PATIENT AOX1 CONFUSED AND FORGETFUL. PATIENT IS NOT ABLE TO COMMUNICATE AT TIMES. PATIENT INCONTINENT PERICARE AND BARRIER CREAM APPLIED NEEDED. PATIENT TURNED Q 2 HOURS. BLE ELEVATED. PATIENT DENIED PAIN OR DISCOMFORT. CALL LIGHT AND PERSONAL ITEMS WITHIN REACH. PATIENT IN BED ASLEEP AT THIS TIME BREATHING REGULAR AND UNLABOURED.
[2020-01-23 04:45] VITALS: BP 132/82
[2020-01-23 06:34] LABS: CALCIUM 9.8 mg/dL (8.5-10.1); POTASSIUM 3.3 mmol/L (3.5-5.1)
--- NOTE | 2020-01-23 07:07 | NUR ---
CALLED PT'S SON THIS AM TO LET HIM KNOW THAT HIS MOM HAS BEEN TRANSFERRED TO ANOTHER UNIT,LEFT A VM FOR HIM TO CALL BACK FOR UPDATE.
[2020-01-23 07:38] LABS: ABSOLUTE NEUTROPHILS 7.1 thou/uL (1.4-8.2); BASOPHILS 1.4 % (0.0-2.0); EOSINOPHILS 1.9 % (0.0-3.0); HEMATOCRIT 29.8 % (37.0-47.0); HEMOGLOBIN 9.9 gm/dL (12.0-15.0); LYMPHOCYTES 22.9 % (24.0-44.0); MCH 25.3 pg (26.0-34.0); MCHC 33.3 g/dL (28.0-37.0); MONOCYTES 5.6 % (1.0-8.0); PLATELET COUNT 364 thou/uL (150-400); POLYS 68.2 % (36.0-66.0); RBC 3.92 mil/uL (4.20-5.00); RDW 15.4 % (10.5-14.5); WBC 10.4 thou/uL (4.0-11.0)
[2020-01-23 08:12] LABS: URINE BILIRUBIN NEGATIVE (Negative); URINE BLOOD NEGATIVE (Negative); URINE CLARITY CLEAR; URINE COLOR YELLOW; URINE GLUCOSE-RANDOM* NEGATIVE (Negative); URINE KETONES NEGATIVE (Negative); URINE NITRITE-REFLEX NEGATIVE (Negative); URINE PROTEIN (DIPSTICK) NEGATIVE (Negative); URINE UROBILINOGEN 0.2 E.U./dl (0.2-1.0)
[2020-01-23 08:17] LABS: URINE LEUKOCYTES-REFLEX 2+ (Negative)
[2020-01-23 08:24] LABS: SQUAMOUS None Seen /LPF (0-3); URIC ACID CRYSTALS >10 Many /LPF (None Seen); URINE WBC-REFLEX >25 Many /HPF (0-5)
[2020-01-23 08:25] LABS: BACTERIA-REFLEX 1-9 Few /HPF (None Seen); CASTS None Seen /LPF (None Seen); URINE RBC 0-2 Rare /HPF (0-2); YEAST-REFLEX Present (None Seen)
[2020-01-23 08:41] VITALS: BP 159/64
[2020-01-23 14:55] VITALS: BP 155/84
[2020-01-23 17:37] VITALS: BP 158/99
[2020-01-23 19:47] VITALS: BP 162/43
--- NOTE | 2020-01-23 20:29 | NUR ---
Assumed pt care this am, VS stable, Q2 turns done. Wound care and dressing change done. BLE elevated, feeding assists done. POC folllowed with no signs or verbalization of distress noted. Would refuse some medication as per the emar. Ext FC in place draining light yellow urine. endorsed to the night nurse.
[2020-01-24 04:40] VITALS: BP 150/89
--- NOTE | 2020-01-24 05:55 | NUR ---
RECIEVED CARE OF THIS PATIENT AT 1900. PATIENT ALERT AND ORIENTED TO PERSON AND PLACE. DOES NOT KNOW TIME OR WHY SHE IS HERE OR HOW SHE GOT HERE. L SIDE FLACCID. HAS EXTERNAL CATH THAT APPEARS TO BE WORKING. ACCUCHECK WAS 139. REMAINS ON TELE, WITH IRREGULAR HR AT BEGINNING OF SHIFT AND WHEN ASLEEP WAS REGULAR. C/O H/A X2, MED GIVEN. C/O PAIN IN R HAND X1, MED GIVEN. SLEPT OFF AND ON DURING NIGHT.
--- NOTE | 2020-01-24 06:01 | HC ---
[facility] [place] [address] CONSULTATION Name: KOBY MCCARTHY Room #: 455-P ADM IN M.R.#: [id number] Admission: 01/22/20 Attend Phys: Bryan Schultz MD Discharge: Date of : 58 Report #: [id number] THIS REPORT FOR: cc: Derek Lofton MD,Derek Beyer,Devan Post MD ~ CC: Bryan Lofton DATE OF SERVICE: 01/23/2020 INFECTIOUS DISEASE CONSULTATION ATTENDING PHYSICIAN: Dr. Schultz. REASON FOR EVALUATION: Suspected pacemaker infection. HISTORY OF PRESENT ILLNESS: Chart reviewed, patient examined. This is a 59-year-old woman with known diabetes mellitus type 2 with diffuse vasculopathy with coronary artery disease, previous stroke with left-sided residual deficits, who was admitted in transfer, was evaluated at an outside hospital, was out of network, was found to have markedly elevated white count, elevated procalcitonin level, suspected sepsis, perhaps due to his pacemaker infection apparently was placed within the last few weeks. She is unable to give any details of the history. She does have degree of dementia versus situational confusion, difficult to rate her pain at the site. She is unaware of any fevers or chills. Appetite is diminished. She denies any significant gastrointestinal-related complaints, nor pulmonary-related complaints. She was initiated on therapy with piperacillin/tazobactam, not clear that she had blood culture collected at the previous facility. They were recollected here as well as the urine, is notable she has a sacral decubitus ulcer, actually was hospitalized being discharged in the early part of January on oral antibiotics with Augmentin. ALLERGIES: LISTED TO MORPHINE, ERYTHROMYCIN. CURRENT MEDICATIONS: Include vitamin, chlorthalidone, sertraline, aspirin, lisinopril, metoprolol, vancomycin, insulin, Zosyn, buspirone, lacosamide and apixaban. PAST MEDICAL HISTORY: As described above, diabetes mellitus complicated by vasculopathy, has known coronary artery disease, previous right-sided CVA with left-sided hemiparesis, history of depression, anxiety, seizure disorder. SOCIAL HISTORY: Former smoker. No ethanol. FAMILY HISTORY: Noncontributory. [facility] [address] [place] [address] CONSULTATION Name: KOBY MCCARTHY Room #: 455-P [facility] IN [facility].#: [id number] Admission: 01/22/20 Attend Phys: Bryan Schultz MD Discharge: Date of : 58 Report #: [id number] REVIEW OF SYSTEMS: Somewhat limited due to her confused state. PHYSICAL EXAMINATION: GENERAL: She appears somewhat chronically ill, undernourished. She is pleasant. She is in sbxj-gk-ckzsbkdm distress, answers quite slow in response. VITAL SIGNS: Temperature 98, pulse 74, respirations 16, blood pressure is 132/82. SKIN: Warm, dry, no rashes. HEENT: Normocephalic. Extraocular muscles intact. NECK: Supple, has got a transverse oriented incision in the left upper chest that has associated contused area. Some ivbh-ck-ummguofp degree of surface inflammation noted. There is no odor, no purulence noted. Somewhat tender. LUNGS: Somewhat diminished. HEART: Regular. Does have a soft systolic murmur. ABDOMEN: Soft, nontender, nondistended. EXTREMITIES: No cyanosis. GENITOURINARY AND RECTAL: Deferred. LABORATORY DATA: Urinalysis greater than 25 white cells, 1-9 bacteria, yeast present. CBC: White count of 10.4, H and H 9.9 and 28, platelets of 364. Electrolytes: Sodium 140, potassium 3.3, chloride 104, bicarbonate is 28, anion gap of 8, BUN and creatinine 54 and 1.0. ASSESSMENT: Sepsis with elevated procalcitonin level, marked leukocytosis. We will try to obtain any blood cultures obtained to give us a headstart. We will await these results. Continue empiric therapy. Whether the pacemaker is infected is not clear, apparently it is dysfunctional at this point, Cardiology to evaluate, may need to remove it on that basis. Also apparently has a complicated urinary tract infection as well. We will add fluconazole pending the results given the presence of yeast noted microscopically. At this point, she is not overtly toxic. We will continue to monitor expectantly. We will go ahead and get a chest x-ray and encouraged initiating incentive spirometry. <ELECTRONICALLY SIGNED> By: Devan Beyer MD 01/24/20 0601 [id number] Devan Beyer MD /nt
--- NOTE | 2020-01-24 18:37 | NUR ---
Assumed pt care this am, VS stable bed bath and complete change done today. Wound care and dressing change done. external FC in place draining light yellow urine, pt had 1 large bm today. Feeding assists done for all meals, diet and medications are well tolerated. Mood swings and anxiety levels would be high. POC followed with no signs or verbalizations of distress noted.
[2020-01-24 20:14] VITALS: BP 141/84
--- NOTE | 2020-01-25 04:00 | NUR ---
PATIENT AOX1 CONFUSED AND FORGETFUL. PATIENT PACEMAKER SITE ON LEFT CLAVICLE IS RED IN COLOR SKIN IS C/D/I. PATIENT TURNED Q 2 HOURS. PATIENT HAD A BOWEL MOVEMENT X1 PERICARE AND BARRIER CREAM APPLIED NEEDED. PATIENT ENCOURAGED FLUIDS. PATIENT IN BED ASLEEP AT THIS TIME BREATHING REGULAR AND UNLABOURED.
[2020-01-25 06:08] LABS: ABSOLUTE NEUTROPHILS 5.9 thou/uL (1.4-8.2); BASOPHILS 1.2 % (0.0-2.0); EOSINOPHILS 3.8 % (0.0-3.0); HEMATOCRIT 33.9 % (37.0-47.0); HEMOGLOBIN 11.2 gm/dL (12.0-15.0); LYMPHOCYTES 34.8 % (24.0-44.0); MCH 25.5 pg (26.0-34.0); MCHC 33.2 g/dL (28.0-37.0); MCV 76.7 fL (80.0-100.0); MONOCYTES 6.2 % (1.0-8.0); PLATELET COUNT 372 thou/uL (150-400); RBC 4.42 mil/uL (4.20-5.00); RDW 15.6 % (10.5-14.5); WBC 10.8 thou/uL (4.0-11.0)
[2020-01-25 06:32] LABS: CALCIUM 9.7 mg/dL (8.5-10.1); CREATININE 0.8 mg/dL (0.6-1.0); TOTAL BILIRUBIN 0.4 mg/dL (0.2-1.0)
[2020-01-25 06:37] LABS: POTASSIUM 2.9 mmol/L (3.5-5.1)
[2020-01-25 07:20] VITALS: BP 154/76
--- NOTE | 2020-01-25 11:20 | NUR ---
WOUND CONSULT; ROUNDING WITH DESMOND NICK. THIS COMPRIMISED WOMAN IS UNABLE TO TURN HERSELF. SHE HAS TWO WOUNDS CONSISTAT WITH PRESSURE TO THE LEFT INNER THIGH AND LEFT BUTTOCKS. THE PATIENT IS HAVING TARRY STOOLS. NO S/S OF WOUND INFECTION. THE PATIENTS ALBUNIN IS LOW AT 3.0 TODAY. THESE WOUNDS WERE INFACT IDENTIFIED UPON ADMISSION. RECOMMENDATION; 1-LOW AIRLOSS BED PUMP FOR PRESSURE REDISTRIBUTION 2-Q2H TURNING 3-ZGUARD APPLIED TO THESE AREAS DAILY/PRN DISCUSSED WITH CHUCKY
[2020-01-25 16:35] VITALS: BP 143/83
--- NOTE | 2020-01-25 18:16 | NUR ---
PT A&OX4. NON AMBULATING AT THIS TIME D/T WEAKNESS. IV INTACT IN R HAND. PT HAS PACE MAKER. L SIDE WEAKNESS NOTED. INCONT OF B/B. C DIFF SAMPLE HAS BEEN SENT TO LAB FOR LOOSE STOOLS. CALL LIGHT W/I REACH BED ALARM ON.
--- NOTE | 2020-01-26 04:06 | NUR ---
PATIENT AOX1 CONFUSED AND FORGETFUL. PATIENT INCONTINENT PERICARE AND BARRIER CREAM APPLIED NEEDED. PATIENT PACEMAKER SITE ON LEFT CLAVICLE IS PINK IN COLOR NO DRAINAGE. CALL LIGHT AND PERSONAL ITEM WITHIN REACH. PATIENT ENCOURAGED FLUIDS. PATIENT IN BED ASLEEP AT THIS TIME BREATHING REGULAR AND UNLABOURED.
[2020-01-26 04:22] VITALS: BP 156/93
[2020-01-26 07:12] VITALS: BP 139/75
--- NOTE | 2020-01-26 09:43 | NUR ---
WOUND CARE F/U ASSESSED BUTTOCK AND THIGH WOUNDS W/ COMMUNICATIONS WRITER GEORGE, INCONT OF LARGE AMT DARK GREENISH STOOL, WOUNDS HEALING, NO S/S INFECTION, PT CONFUSED PRESENT BUT COOPERATIVE, REMAINS ON LOW AIR LOSS PUMP TO BED RECOMMENDATIONS; CONT ZGUARD DAILY AND PRN AFTER Q INCONT EPISODE, TRY PURE WICK CATH AGAIN, CONT TURN Q 2HOURS, CONT LOW AIR PUMP TO BED COMMUNICATIONS WRITER AWARE
--- NOTE | 2020-01-26 11:43 | NUR ---
ASSUMED CARE AT 0700. PT SLEEPY THIS AM, BUT AROUSABLE AFTER SOME TIME. PT ALERT AND ORIENTED X2. FORGETFUL. VSSA/RA ON TELE WITH PACEMAKER AND HX OF AFIB. SHE IS INCONTINENT OF B AND B. EMESIS X1 TODAY. BLOOD SUGARS MONITORED. PIV INFUSING WITHOUT ISSUES. PT IS BEDREST. Q2 TURNS. CALL LIGHT IN REACH. PRN MEDS GIVEN ORDERED. WILL CONTINUE TO MONITOR
[2020-01-26 15:25] VITALS: BP 143/75
--- NOTE | 2020-01-26 15:49 | NUR ---
PT ADMITTED RELATED TO ELEVATED WBC, SUSPECTED SEPSIS OR BACTEREMIA. CM REVIEWED CHART AND SPOKE WITH CARE TEAM. PT FAMILIAR TO CM FROM PREVIOUS ADMISSION. PT RESIDES AT [facility]. PT HAD RETURNED SKILLED TO [facility] ON 01/11. PT USES A WC TO ASSIST WITH MOBILITY AT THE FACILITY. CM CALLED AND SPOKE WITH PT'S SON AND HE INDICATED THAT HE ANTICPATED PT RETURNING TO [facility] ONCE MEDICALLY STABLE. CM TO FOLLOW INDICATED WITH DC PLANNING. CLINICAL UPDATE SENT TO THE FACILITY THIS DAY.
[2020-01-26 19:35] VITALS: BP 143/77
[2020-01-27 04:26] VITALS: BP 147/89
[2020-01-27 05:43] LABS: HEMATOCRIT 29.7 % (37.0-47.0); HEMOGLOBIN 9.9 gm/dL (12.0-15.0); MCH 25.3 pg (26.0-34.0); MCHC 33.4 g/dL (28.0-37.0); MCV 75.9 fL (80.0-100.0); RBC 3.92 mil/uL (4.20-5.00); RDW 16.1 % (10.5-14.5); WBC 11.8 thou/uL (4.0-11.0)
[2020-01-27 05:57] LABS: CALCIUM 9.5 mg/dL (8.5-10.1); CREATININE 0.9 mg/dL (0.6-1.0); POTASSIUM 3.2 mmol/L (3.5-5.1)
--- NOTE | 2020-01-27 07:41 | NUR ---
ASSUMED CAER OF PT AT 1900HRS. PT AOX2 AND NEEDS MAY NEED TO BE ANTICIPATED. PT REQUIRES TOTAL CARE. PT CALLS FREQUENTLY FOR COMPANY. PT CAN BE EMOTONAL AND TEARY AT TIMES. ABX TREATMENT CONTINUED. PT WAS ABLE TO GET COMFORTABLE AND SLEEP PART OF THE SHIFT. VSS AND NO S/S OF ACUTE DISTRESS. WILL CONTINUE TO MONITOR FOR CHANGES.
[2020-01-27 07:56] VITALS: BP 165/85
--- NOTE | 2020-01-27 11:53 | NUR ---
ASSUMED CARE AT 0700. PT IS SLEEPY THIS AM, BUT ALERT WHEN WOKE. VSSA/RA ON TELE WITH PACEMAKER IN PLACE. INCONTINENT OF B/B. TOLERATING DIET WITH BLOOD SUGARS MONITORED. PIV INFUSING WITHOUT ISSUES. NO COMPLAINTS. CALL LIGHT IN REACH. PT IS BR Q2 TURNS. WILL CONTINUE TO MONITOR
--- NOTE | 2020-01-27 13:13 | NUR ---
PT CURRENTLY ON VANC AND ZOSYN. DR. DAVENPORT HAD ORDERED LABS TO BE DRAWN THIS AM. NURSE INDICATED PT WC WENT UP SLIGHTLY. PLAN IS FOR PT TO RETURN TO [facility] ONCE MEDICALLY STABLE. CM TO FOLLOW INDICATED WITH DC PLANNING.
--- NOTE | 2020-01-27 14:21 | NUR ---
FAXED CLINICAL UPDATE TO [facility] SPOKE WITH BRITTANIE IN ADM SHE RECEIVED UPDATE. DP TO FOLLOW.
[2020-01-27 14:50] VITALS: BP 138/85
[2020-01-27 19:35] VITALS: BP 153/76
[2020-01-28 05:49] LABS: HEMATOCRIT 26.3 % (37.0-47.0); HEMOGLOBIN 8.8 gm/dL (12.0-15.0); MCH 25.8 pg (26.0-34.0); MCHC 33.6 g/dL (28.0-37.0); MCV 76.8 fL (80.0-100.0); RBC 3.42 mil/uL (4.20-5.00); RDW 16.1 % (10.5-14.5); WBC 10.7 thou/uL (4.0-11.0)
[2020-01-28 06:12] LABS: CALCIUM 8.5 mg/dL (8.5-10.1); CREATININE 0.9 mg/dL (0.6-1.0)
[2020-01-28 07:30] VITALS: BP 132/71
[2020-01-28 08:25] LABS: POTASSIUM 2.8 mmol/L (3.5-5.1)
--- NOTE | 2020-01-28 08:25 | NUR ---
ASSUMED PT CARE AT 1900. PT IS A&OX3, PERIODS OF CONFUSION. REPORTS PAIN ONLY WHEN LEFT FOOT IS BEING TOUCHED. INCONTINENT OF BOWEL AND BLADDER. Q2 TURNS PROVIDED. TAKES PILLS FEW AT A TIME WIHT WATER. 2 LOOSE DARK STOOLS TONIGHT. BLOOD SUGARS WNL. ANTIBIOTICS GIVEN PER ORDER. ZGAURD APPLIED TO WOUNDS. SEIZURE PRECAUTIONS IN PLACE. PT SLEPT WELL TONIHT WITH NO COMLAINTS AT THIS TIME.
--- NOTE | 2020-01-28 12:11 | NUR ---
GUANACO SPOKE WITH DR. DAVENPORT HE INDICATED THAT HE ANTICPATES PT NEEDING TO BE ON PROLONGED IV ABX UPON DISCHARGE BACK TO [facility]. WAITING ON ID FOR DIRECTION ON ABX. CM PROVIDED CLINICAL UPDATED TO [facility] AND ASKED THAT THEY SUBMIT FOR AUTH. CM TO FOLLOW INDICATED WITH DC PLANNING.
[2020-01-28 15:51] VITALS: BP 137/80
--- NOTE | 2020-01-28 18:17 | NUR ---
PT IS AOX3, CONFUSED AT TIMES. PT HAS NO DISTRESS AT THIS TIME. PT IS INCONTINENT OF B & B, TURNED Q 2HRS. IV FLUIDS ARE RUNNING IN RIGHT WRIST. CALL LIGHT IN REACH, WILL CONTINUE TO MONITOR.
[2020-01-28 19:54] VITALS: BP 178/94
[2020-01-28 23:16] VITALS: BP 134/72
--- NOTE | 2020-01-29 01:05 | NUR ---
PATIENT IS Q2 TURN. INCONTIENT. WOUND TO LOWER BACK. PATIENT IS RESTING COMFORTABLY IN BED. WCM.
[2020-01-29 05:21] VITALS: BP 134/64
[2020-01-29 08:49] VITALS: BP 144/82
--- NOTE | 2020-01-29 09:58 | NUR ---
WOUND CARE F/U ASSESSED WOUNDS W/ BURNING PLANT OPERATOR JARROD, HEALING, PINK VIABLE TISSUE PRESENT, NO NEW AREAS BREAKDOWN, NO S/S INFECTION, INCONT OF URINE,SUGGEST TRYING PURE WICK CATH AGAIN, REMAINS ON LOW AIR LOSS PUMP TO BED, COOPERATIVE BUT DROWSY RECOMMENDATIONS CONT LOW AIR LOSS PUMP TO BED, ZGUARD DAILY AND PRN ESPECIALLY AFTER INCONT EPISODE, TURN, REPOSITION [id number], PURE WICK CATH BURNING PLANT OPERATOR AWARE
--- NOTE | 2020-01-29 15:23 | NUR ---
DR. DAVENPORT ORDERED A CBC O BE DRAWN TOMORROW AM. INDICATED STILL AWAITING ID INPUT ON DURATION OF ABX TREATMENT. NOTIFIED [facility] PLACE OF THIS. SHOULD PT BE MEDICALLY STABLE TO DISHCARGE TO [facility] OVER WEEKEND CHART COPY WILL BE NEEDED. ORDERS TO BE FAXED TO . CALL [facility] AT OR [facility] AT TO SET UP TRANSPORT. REPORT TO BE CALLED TO . NOTIFY SON.
[2020-01-29 16:09] VITALS: BP 141/72
[2020-01-29 20:20] VITALS: BP 152/75
[2020-01-30 05:39] LABS: ABSOLUTE NEUTROPHILS 5.9 thou/uL (1.4-8.2); BASOPHILS 1.4 % (0.0-2.0); EOSINOPHILS 3.7 % (0.0-3.0); HEMATOCRIT 30.6 % (37.0-47.0); HEMOGLOBIN 10.1 gm/dL (12.0-15.0); LYMPHOCYTES 40.3 % (24.0-44.0); MCH 25.7 pg (26.0-34.0); MCV 77.7 fL (80.0-100.0); PLATELET COUNT 277 thou/uL (150-400); POLYS 48.6 % (36.0-66.0); RBC 3.94 mil/uL (4.20-5.00); RDW 16.7 % (10.5-14.5); WBC 12.2 thou/uL (4.0-11.0)
[2020-01-30 06:15] LABS: CALCIUM 10.1 mg/dL (8.5-10.1); CREATININE 0.7 mg/dL (0.6-1.0); POTASSIUM 3.3 mmol/L (3.5-5.1)
[2020-01-30 07:38] VITALS: BP 148/83
--- NOTE | 2020-01-30 07:59 | NUR ---
progress pt a/o x 3 to 4 gets frustrated and paranoid at times. stated her thumb hurt while being repositioned and raised her fist up to Karen the track laying supervisor assisting me . I had to instruct pt that not to hit Karen because she didn't hurt her on purpose her thumb was caught in the blanket. vss, drinking adeqaute po remains incintinent of bowel and bladder continue to monitor.
[2020-01-30 12:21] VITALS: BP 141/90
[2020-01-30 17:14] VITALS: BP 151/84
--- NOTE | 2020-01-30 17:55 | NUR ---
PT IS A&OX3, PT IS CONTIUNING IV ABX, PT'S VS ARE STABLE, PT NEED HELP MEALS AND CHANGE POSITION, PT DENIES PAIN AT THIS TIME.
[2020-01-30 21:15] VITALS: BP 157/88
--- NOTE | 2020-01-31 03:40 | NUR ---
Progress pt alert and oriented but showing signs of her bipolar disorder acting paranoid and agitated with cares. buttocks and periarea cleansed area of breakdown to buttocks and inner thigh cleansed offloaded and barrier cream applied. pt took hs meds and has been sleeping most of shift, repositioned frequently external catheter in place. tele reading sr with rates in the 80's.
[2020-01-31 07:41] VITALS: BP 125/78
[2020-01-31 16:45] VITALS: BP 123/74
--- NOTE | 2020-01-31 17:21 | NUR ---
Assumed patient care at 0715. Vital signs have been stable, abdomen soft and non-tender, BS x's 4, LSCTA. Patient continues to have breakdown areas on buttocks/sacral area. Female External Catheter is being utilized with good results, keeping kobe tank cleaner to increase any further risks of breakdown. Patient was reported to have 2 large bowel movements last night. She had a small bowel movement this am. Patient requires assistance with meals. Medications that can be crushed are taken in applesauce. Whole capsules and meds can be taken one to two at a time, in applesauce as well. Patient continues on IV Antibiotics without adverse reactions. She has been very anxious and tearful throughout the entire day; wants staff to stay in room. Will report to on-coming nurse.
[2020-01-31 19:10] VITALS: BP 133/84
--- NOTE | 2020-02-01 01:54 | NUR ---
ASSUMED CARE OF PT AT 1900HRS. PT AOX2-[address]. PT HAS LT SIDED WEAKNESS. PT WAS ABLE TO TAKE ALL HS MEDS WHOLE WITH WATER. Q2 TURNS. PT WAS ABLE TO GET COMFORTABLE AND SLEEP PART OF THE SHIFT. VSS AND NO S/S OF ACUTE DISTRES. WILL CONTINUE TO MONITOR.
[2020-02-01 06:45] LABS: ABSOLUTE NEUTROPHILS 6.9 thou/uL (1.4-8.2); EOSINOPHILS 3.4 % (0.0-3.0); HEMATOCRIT 28.3 % (37.0-47.0); HEMOGLOBIN 9.4 gm/dL (12.0-15.0); LYMPHOCYTES 33.6 % (24.0-44.0); MCH 25.2 pg (26.0-34.0); MCHC 33.1 g/dL (28.0-37.0); MCV 76.2 fL (80.0-100.0); MONOCYTES 6.7 % (1.0-8.0); PLATELET COUNT 297 thou/uL (150-400); POLYS 55.3 % (36.0-66.0); RBC 3.72 mil/uL (4.20-5.00); RDW 16.7 % (10.5-14.5); WBC 12.5 thou/uL (4.0-11.0)
[2020-02-01 07:40] VITALS: BP 127/71
[2020-02-01 07:42] LABS: CALCIUM 9.6 mg/dL (8.5-10.1); POTASSIUM 3.5 mmol/L (3.5-5.1)
--- NOTE | 2020-02-01 10:08 | NUR ---
Received awake on bed. Due medications given as prescribed, able to swallow meds w/0 difficulty. A+Ox1-2, confused; re-oriented from time to time. On room air. Vital signs stable. On telemetry- strips attached to chart; SR; with pacemaker in place- no complaints of chest pain, crushing sensation and heaviness. On carb controlled diet- assisted in eating and drinking; no nausea, no vomiting and no abdominal pain noted. On blood sugar monitoring-taken and recorded accordingly; with sliding scale ordered- given as prescribed. With external luevano in place- output measured and recorded accordingly; incontinent of bowel and bladder- checked frequently and changed as needed. Falls bundle in place. With sacral wounds- z guard applied as ordered. With SL at R FA- intact and flushing well- on IV antibiotics. Assisted in ADLs. Pt frequently crying and shouting, wants someone to be in her room the whole day- explained to patient, and checked frequently.
--- NOTE | 2020-02-01 10:30 | NUR ---
WOUND CARE F/U; ASSESSED WOUNDS W/ MURTAZA LOCKE WOUND COORDINATOR, BUTTOCKS AND THIGH WOUNDS HEALING, ALMOST CLOSED, NO DRAINAGE, NO S/S INFECTION, PINK VIABLE TISSUE PRESENT, COOPERATIVE BUT CONFUSED RECOMMENDATIONS; CONT ZGUARD DAILY AND ESPECIALLY AFTER EVERY INCONT EPISODE, TURN [id number] WHEN IN BED, CONT LOW AIR LOSS PUMP TO BED APPLICATION SUPPORT AWARE
--- NOTE | 2020-02-01 14:47 | NUR ---
CARE TEAM INDICATING THAT WE ARE AWAIING ID RECS ON ABX AND DURATION. PLAN IS FOR PT TO DC BACK TO [facility] ONCE MEDICALLY STABLE. CM SPOKE WITH ADMISSIONS THIS MORNING AND PROVIDED UPDATE.
[2020-02-01 15:28] VITALS: BP 137/79
[2020-02-01 19:45] VITALS: BP 164/99
--- NOTE | 2020-02-02 03:14 | NUR ---
ASSUMED CARE OF PT AT 1900HRS. PT AOX2 AND NEEDS MUST BE ANTICIPATED. PT IS TOTAL CARE. FALL PRECAUTION IN PLACE. PT DENIED PAIN, NAUSEA OR SOA. PT WAS ABLE TO TAKE MEDS WHOLE WITH WATER. PT WAS ABLE TO GET COMFORTABLE AND SLEEP PART OF THE SHIFT. NO S/S OF ACUTE DISTRESS. WILL CONTINUE TO MONITOR.
[2020-02-02 06:07] VITALS: BP 133/91
[2020-02-02 09:00] VITALS: BP 125/79
--- NOTE | 2020-02-02 15:06 | NUR ---
FAR CM CAN TELL WE ARE STILL AWAITING ID RECS. IT IS ANTIPATED THAT PT WILL RETURN TO [facility] ONCE MEDICALLY STABLE. CM TO FOLLOW INDICATED WITH DC PLANNING.
[2020-02-02 16:19] VITALS: BP 118/77
[2020-02-02 19:52] VITALS: BP 114/71
--- NOTE | 2020-02-03 04:52 | NUR ---
ASSUMED CARE OF PT AT 1900HRS. ASSESSMET CHARTED. PT TOOK ALL MEDS WHOLE WITH WATER. PT DENIED NAUSEA OR SOA. PT WAS ABLE TO GET COMFORTABLE AND SLEEP PART OF THE SHIFT. VSS AND NO S/S OF ACUTE DISTRESS. WILL CONTINUE TO MONITOR FOR CHANGES.
[2020-02-03 05:52] VITALS: BP 115/71
[2020-02-03 06:11] LABS: HEMATOCRIT 26.8 % (37.0-47.0); MCH 25.4 pg (26.0-34.0); MCHC 33.6 g/dL (28.0-37.0); MCV 75.6 fL (80.0-100.0); RBC 3.55 mil/uL (4.20-5.00); RDW 17.5 % (10.5-14.5); WBC 13.2 thou/uL (4.0-11.0)
[2020-02-03 06:23] LABS: CALCIUM 9.7 mg/dL (8.5-10.1); POTASSIUM 3.7 mmol/L (3.5-5.1)
--- NOTE | 2020-02-03 10:23 | NUR ---
CARE TEAM INDICATED THAT IMDIUM SCAN WAS COMPLETED THAT NOW AWAITING RESULTS. PHYSICIAN HAD ORDERED REPEAT CBC AND PROCALCITONIN FOR THIS MORNING. CM SPOKE ALYSHA GU IN ADMISSIONS AT [facility] AND SHE INDICATED SHE NEEDED UPDATED CLINICAL INFO FAXED OVER THEIR AUTH FOR SKILLED YESTERDAY. CLINICAL UPDATE FAXED. CM TO FOLLOW INDICATED WITH DC PLANNING.
--- NOTE | 2020-02-03 12:17 | NUR ---
WOUND CARE F/U; ASSESSED SACRAL/THIGH WOUNDS W/ WIRE MESH KNITTER GILMA, WOUNDS ALMOST HEALED, NO S/S INFECTION, COOPERATIVE BUT CONFUSED, INCONT STOOL, REMAINS ON LOW AIR LOSS PUMP TO BED, PHOTO TAKEN RECOMMENDATIONS; CONT ZGUARD TO WOUNDS DAILY AND PRN, CONT LOW AIR LOSS PUMP TO BED, TURN [id number], OFF LOADING WIRE MESH KNITTER AWARE
[2020-02-03 13:55] VITALS: BP 130/72
--- NOTE | 2020-02-03 14:30 | NUR ---
Received awake on bed. Due medications given as prescribed, able to swallow meds w/o difficulty. On room air. Vital signs stable. On telemetry- strips attached to chart; no complaints of chest pain, crushing or heaviness sensation. On carb controlled diet- tolerating well; no nausea, no vomiting and no abdominal pain noted. On blood sugar monitoring- taken and recorded accordingly; with sliding scale insulin ordered- given as prescribed. Incontinent of bowel and bladder- checked frequently and changed as needed. With sacral ulcer and wound at L buttocks- wound nurse seen and examined wound; photo taken, Z guard applied as needed. On low air loss mattress- turned on her sides frequently. Falls bundle in place. Assisted in ADLs, encouraged and assisted in eating and drinking as well. With SL at R hand and R FA- intact and flushing well; on IV antibiotics. Pt scheduled for imdum scan- nuclear medicine- pt went down for procedure this afternoon. To continue monitoring patinet.
--- NOTE | 2020-02-03 16:48 | NUR ---
FAXED CLINICAL UPDATE TO [facility] RECEIVED CONFIRMATION AND LEFT MSG WITH BRITTANIE IN ADM. DP TO FOLLOW.
[2020-02-03 20:08] VITALS: BP 147/81
--- NOTE | 2020-02-04 04:01 | NUR ---
PATIENT AOX1 CONFUSED AND FORGETFUL. PAIN CONTROLLED THIS SHIFT. PATIENT INCONTINENT THIS SHIFT PERICARE AND BARRIER CREAM APPLIED NEEDED. CALL LIGHT AND PERSONAL ITEM WITHIN REACH. FALL PRECAUTION IN PLACE.PATIENT IN BED ASLEEP AT THIS TIME BREATHING REGULAR AND UNLABOURED.
[2020-02-04 06:54] VITALS: BP 114/62
[2020-02-04 16:22] VITALS: BP 122/70
--- NOTE | 2020-02-04 19:20 | NUR ---
PT IS A&OX3, BUT PT IS FORGETFUL, PT IS CONTINUING IV ABX, PT'S VS ARE STABLE, PT NEEDS HELPING MEALS AND CHANGE POSITION, BUT PT REFUSED SOME MEDICATIONS, HAS NOTIFIED.
[2020-02-04 19:49] VITALS: BP 116/62
--- NOTE | 2020-02-05 02:46 | NUR ---
Patient aox1 confused and forgetful.fall precaution in place. patient incontinent pericare and barrier cream applied as needed. fall precaution in place. patient in bed asleep at this time breathing regular and unlaboured.
[2020-02-05 05:41] LABS: HEMATOCRIT 25.4 % (37.0-47.0); HEMOGLOBIN 8.4 gm/dL (12.0-15.0); MCH 25.6 pg (26.0-34.0); MCHC 33.2 g/dL (28.0-37.0); MCV 77.3 fL (80.0-100.0); RBC 3.28 mil/uL (4.20-5.00); RDW 17.8 % (10.5-14.5); WBC 11.2 thou/uL (4.0-11.0)
[2020-02-05 05:55] LABS: CALCIUM 9.7 mg/dL (8.5-10.1); POTASSIUM 3.5 mmol/L (3.5-5.1)
[2020-02-05 08:18] VITALS: BP 114/75
[2020-02-05 12:15] VITALS: BP 115/68
--- NOTE | 2020-02-05 12:19 | NUR ---
WOUND CARE F/U; ASSESS SACRAL/THIGH WOUND W/ CIDER MAKER CHELO, WOUNDS ALMOST HEALED, PINK VIABLE TISSUE PRESENT, PT COOPERATIVE BUT CONFUSED, INCONT STOOL AND URINE, REMAINS ON LOW AIR LOSS PUMP TO BED, ENCOURAGED TURNING, OFF LOADING RECOMMENDATIONS CONT CURRENT POC W/ ZGUARD TO SACRAL/BUTTOCKS/THIGH AREA BID AND PRN PATRICIA AFTER EACH INCONT EPISODE, CONT OFF LOADING, TURN [id number], LOW AIR LOSS PUMP TO BED CIDER MAKER AWARE
--- NOTE | 2020-02-05 14:31 | NUR ---
PHYSICIAN INDICATED THAT THERE MAY BE A POSSIBLE PULMONARY PROCESS PT NOW ON NECTAR THICK LIQUIDS. PT HAS ORDERED REPEAT LABS IN THE AM AND THEY HAVE CONSULTED RHEUMATOLOGY FOR OTHER POSSIBLE CAUSES OF ELEVATED PROCALCITONIN. CM TO FOLLOW INDICATED WITH DC PLANNING. PLAN IS FOR PT TO RETURN TO [facility] ONCE MEDICALLY STABLE.
[2020-02-05 17:54] VITALS: BP 115/70
[2020-02-05 19:24] VITALS: BP 103/63
--- NOTE | 2020-02-05 20:15 | NUR ---
PATIENT ALERT AND ORIENTED BUT HAS DIFFICULTY SPEAKING AT TIMES DUE TO PREVIOUS CVA. PATIENT NEEDS SET UP ASSISTANCE WITH MEALS BUT CAN EAT AND DRINK WITH RIGHT UPPER EXTREMITY. PATIENT HAD SEVERAL INCONTINENT EPISODES TODAY. LINENS CHANGED AND BARRIER CREAM APPLIED.
[2020-02-06 03:49] VITALS: BP 118/56
--- NOTE | 2020-02-06 05:22 | NUR ---
Pt. rested quietly at intervals during the night when checked on during frequent rounds. She has been incontinent of urine and kobe care given. Pt. turned and repositioned. She offers no c/o pain. Bed alarm is on.
[2020-02-06 05:45] LABS: ABSOLUTE NEUTROPHILS 5.6 thou/uL (1.4-8.2); BASOPHILS 1.2 % (0.0-2.0); EOSINOPHILS 2.1 % (0.0-3.0); HEMATOCRIT 23.7 % (37.0-47.0); LYMPHOCYTES 27.3 % (24.0-44.0); MCH 25.9 pg (26.0-34.0); MCHC 33.6 g/dL (28.0-37.0); MCV 77.1 fL (80.0-100.0); MONOCYTES 7.9 % (1.0-8.0); PLATELET COUNT 284 thou/uL (150-400); POLYS 61.5 % (36.0-66.0); RBC 3.07 mil/uL (4.20-5.00); RDW 17.9 % (10.5-14.5); WBC 9.1 thou/uL (4.0-11.0)
[2020-02-06 06:03] LABS: % SATURATION 16 % (20-39); IRON 29 ug/dL (50-170); TIBC 179 ug/dL (250-450)
[2020-02-06 06:08] LABS: ALBUMIN 2.6 g/dL (3.4-5.0); CALCIUM 9.8 mg/dL (8.5-10.1); CREATININE 1.1 mg/dL (0.6-1.0); POTASSIUM 4.4 mmol/L (3.5-5.1); TOTAL BILIRUBIN 0.2 mg/dL (0.2-1.0); TOTAL PROTEIN 6.2 g/dL (6.4-8.2)
[2020-02-06 07:52] VITALS: BP 126/75
[2020-02-06 08:18] LABS: PROCALCITONIN 5.97 ng/mL (<0.50)
[2020-02-06 15:53] VITALS: BP 134/75
[2020-02-06 20:34] VITALS: BP 144/93
--- NOTE | 2020-02-06 21:01 | NUR ---
ASSUMED PT CARE AT 0700. PT AWAKE, ALERT X ORIENTED 2-3 . WILL NOT CALL FOR HELP.WOUND IN COCCYX AREA.INCONTINENT OF BLADDER AND BOWEL. PATIENT IS HARD OF TAKING MEDICATION. DIFFICULT TO UNDERSTAND WHAT PATIENT SAYS. FALL PRECAUTION IN PLACE. SHIFT REPORT GIVEN TO HIGHWALL DRILL OPERATOR.
--- NOTE | 2020-02-07 03:54 | NUR ---
PATIENT ALERT AND ORIENTED X2-3. CRUSHED MEDICATION AND MIXED WITH YOGURT WHICH WAS RECEIVED WELL. BS AC ONLY. RESTLESS AT BEGINNING OF SHIFT, YELLING OUT LOUDLY "HELP". EATING DISORDER PSYCHOLOGIST BATHED PATIENT AND CHANGED BEDDING. GIVEN ZOFRAN UPON NOTICING SOME POSSIBLE EMESIS FROM SIDE OF HER MOUTH. PATIENT REQUIRES SET-UP WITH MEALS AND POSSIBLE FEED NOT MUCH HAD BEEN EATEN FROM HER DINNER TRAY. WILL MONITOR.
[2020-02-07 03:58] VITALS: BP 149/93
[2020-02-07 07:45] VITALS: BP 123/65
[2020-02-07 15:50] VITALS: BP 119/63
--- NOTE | 2020-02-07 17:05 | NUR ---
PT IS AOX2-3 WITH CONFUSION AT TIMES. PT TAKES SOME MEDICATION WITH PUDDING. PT REFUSED TO DRINK POTASSIUM. PT REPOSITIONED Q 2HRS, PT DOES NOT USE CALL LIGHT APPROP. PT WILL YELL FOR STAFF. IV PATENT IN RIGHT HAND/SL. PT INCONTINENT OF B&B. THICKEN LIQUIDS ADDED TO DRINKS. NO DISTRESS NOTED, WILL CONTINUE TO MONITOR.
[2020-02-07 20:14] VITALS: BP 132/64
--- NOTE | 2020-02-08 04:05 | NUR ---
ASSUMED CARE OF PT AT 1900HRS. PT AOX2 AND NEEDS MA NEED TO BE ANTICIPATED. FALL PRECAUTION IN PLACE. PT REQUIRES TOTAL CARE. ABX TREATMENT CONTINUED. ASSESSMENT CHARTED. PT WAS ABLE TO GET COMFORTABLE AND SLEEP PART OF THE SHIFT. VSS AND NO S/S OF ACUTE DISTRESS. WILL CONTINUE TO MONITOR.
[2020-02-08 05:18] VITALS: BP 130/71
[2020-02-08 07:46] VITALS: BP 138/78
[2020-02-08 08:42] LABS: HEMATOCRIT 25.4 % (37.0-47.0); HEMOGLOBIN 8.7 gm/dL (12.0-15.0); MCH 26.5 pg (26.0-34.0); MCHC 34.5 g/dL (28.0-37.0); MCV 76.8 fL (80.0-100.0); RBC 3.31 mil/uL (4.20-5.00); RDW 18.6 % (10.5-14.5); WBC 10.1 thou/uL (4.0-11.0)
[2020-02-08 08:52] LABS: CALCIUM 10.3 mg/dL (8.5-10.1); CREATININE 0.9 mg/dL (0.6-1.0); POTASSIUM 3.9 mmol/L (3.5-5.1)
--- NOTE | 2020-02-08 09:55 | NUR ---
WOUND CONSULT; A NEW PRESSURE WOUND DISCOVERED TODAY TO THE SACRUM. THERE IS NO S/S OF INFECTION. THERE IS UNDERMINING PRESENT. WOUND IS 1 X 1 X 0.2 THE PATIENT IS INCONTINENT OF URINE. HOB IS >30 DEGREES. RECOMMENDATIONS; 1-TURN PATIENT Q2H 2-PUREWICK CATH 3-BORDER FOAM 4-CONSULT DR REDD
--- NOTE | 2020-02-08 10:44 | NUR ---
Pt has not been eating well for over a month. Continue to offer feed assist with meals, thicken alexandra supplements to nectar thick when mixing. Also would recommend consideration of clinimix PPN at 80ml/hr. Na and Cl levels are increasing likely with poor nutrition
[2020-02-08] MEDS ORDERED: ZOSYN 3.373.375 GM/1 IV (14:01)
[2020-02-08] MEDS ORDERED: PROBIOTIC1 EAC1 PO (14:03)
[2020-02-08] MEDS ORDERED: NORVASC10 MG PO (14:10)
--- NOTE | 2020-02-08 15:43 | NUR ---
CARE TEAM INDICATED THAT PT IS MEDICALLY STABLE TO DC BACK SKILLED TO [facility] THIS DAY. CM NOTIFIED [facility] AND THEY INDICATED THAT THEY WOULD NEED TO RESUBMIT FOR INSURANCE AUTH. CLINICAL UPDATES HAD BEEN SENT THIS AM. THEY HAVE SUBMITTED FOR AUTH BUT IT LIKELY WON'T BE RECIEVED UNTIL TOMORROW. CM TO FOLLOW INDICATED WITH DC PLANNING.
--- NOTE | 2020-02-08 15:59 | NUR ---
FAXED CLINICAL UPDATE TO [facility] SPOKE WITH BRITTANIE IN ADM SHE RECEIVED UPDATE AND WILL SUBMIT FOR AUTH. DP TO FOLLOW.
--- NOTE | 2020-02-08 16:28 | NUR ---
ASSUMED PATIENT CARE AT 0700. PT IS AWAKE, ALERT TO PERSON AND PLACE. ROOM AIR. INCONTINENT OF BB, PATIENT HAS WOUND ON BACK (SACRAL AREA). TURNS QX 2HRS. PATIENT PULLS OUT FEM EXT CATHETER. FALL PRECAUTION IN PLACE. IV RT FOREARM AND RT HAND. HAD 2 BM TODAY. WILL CONT TO MONITOR
[2020-02-08 20:34] VITALS: BP 136/79
[2020-02-09 07:05] VITALS: BP 143/77
[2020-02-09 10:20] VITALS: BP 143/77
[2020-02-09 15:07] LABS: ANA INTERPRETATION Negative (Negative)
--- NOTE | 2020-02-09 15:24 | NUR ---
CARE TEAM INDICATED THAT PT IS MEDICALLY STABLE TO DC BACK TO SKILLED AT [facility] THIS DAY. INSURANCE AUTH WAS RECEIVED. [facility] TRANSPORT IS ARRANGED FOR 1630. PT AND SON ARE AWARE AND AGREEABLE. CHART COPY ORDERED. ORDERS AND COVID SCREENING TOOL COMPLETED AND FAXED. REPORT TO BE CALLED TO . NO OTHER CM INTERVENTION INDICATED. CASE CLOSED.
--- NOTE | 2020-02-09 18:39 | NUR ---
Received awake on bed. Due medications given as prescribed, able to swallow meds w/o difficulty.
--- NOTE | 2020-02-09 20:08 | NUR ---
Received awake on bed. Due medications given as prescribed, able to swallow meds w/o difficulty. On room air. Vital signs stable. A+O to self. On telemetry, SR-ST, strips attached to chart; no complaints of chest pain, crushing sensation and heaviness. On carb controlled diet, nectar thick fluids- assisted in eating and drinking; no nausea, no vomiting and no abdominal pain noted. Incontinent of bowel and bladder, checked frequently and changed as needed. With SL at R hand and R FA- on IV antibiotics- given as prescribed. On blood sugar monitoring-bam chanel and recorded, with sliding scale insulin ordered- given as prescribed. Falls bundle in place. Pt turned on her sides frequently, on low airloss mattress. With wound on her sacrum and buttocks- wound care aware, changed dressing today and photo taken. Assisted in ADLs. With discharge orders already to SNF, still a/w insurance authorization- CM to update RN once with changes. CM advised RN that pt has insurance authorization already, transport set up at 1630. Report given to [facility] staff: Yuni, informed her re: wound care, labs ordered to be done after 1 week. IV discontinued as per protocol. Chart copy handed over to transport staff, pt taken via cart with her personal belongings.
== END 2020-02-09 17:12 | DRG 871 ==
LOC: 4S 15:00 → 4W 16:52
PROVIDERS: Internal Medicine Infectious Disease; Nurse Practitioner Family; Specialist; ADMIT Internal Medicine; ATTEND Internal Medicine
DX: A41.9 Sepsis, unspecified organism (principal); L89.103 Pressure ulcer of unspecified part of back, stage 3; G93.41 Metabolic encephalopathy; J69.0 Pneumonitis due to inhalation of food and vomit; I69.354 Hemiplegia and hemiparesis following cerebral infarction affecting left non-dominant side; L89.150 Pressure ulcer of sacral region, unstageable; I25.10 Atherosclerotic heart disease of native coronary artery without angina pectoris; F03.90 Unspecified dementia, unspecified severity, without behavioral disturbance, psychotic disturbance, mood disturbance, and anxiety; F32.9 Major depressive disorder, single episode, unspecified; G40.909 Epilepsy, unspecified, not intractable, without status epilepticus; I49.5 Sick sinus syndrome; R53.81 Other malaise; E11.40 Type 2 diabetes mellitus with diabetic neuropathy, unspecified; E66.3 Overweight; M19.90 Unspecified osteoarthritis, unspecified site; I10 Essential (primary) hypertension; F41.1 Generalized anxiety disorder; K52.9 Noninfective gastroenteritis and colitis, unspecified; D50.9 Iron deficiency anemia, unspecified; E87.6 Hypokalemia; Z79.82 Long term (current) use of aspirin; Z87.891 Personal history of nicotine dependence; Z90.49 Acquired absence of other specified parts of digestive tract; Z95.810 Presence of automatic (implantable) cardiac defibrillator; Z90.710 Acquired absence of both cervix and uterus; Z88.6 Allergy status to analgesic agent; Z88.1 Allergy status to other antibiotic agents; Z88.5 Allergy status to narcotic agent; Z79.4 Long term (current) use of insulin; Z79.01 Long term (current) use of anticoagulants; Z79.899 Other long term (current) drug therapy; Z68.29 Body mass index [BMI] 29.0-29.9, adult
CPT/HCPCS: 10045; 10047

== ENCOUNTER 2020-03-10 15:22 | Inpatient (IN) | payer BC, OTHER ==
[~2020-03-10] VITALS: Ht 162.6 cm; Wt 65.8 kg
[~2020-03-10 15:22] MED LIST changes: +NORVASC10 MG PO; +PROBIOTIC1 EAC1 PO; +ZOSYN 3.373.375 GM/1 IV
[2020-03-10 15:23] VITALS: BP 140/76
[2020-03-10 16:05] LABS: CALCIUM 11.6 mg/dL (8.5-10.1); CREATININE 1.9 mg/dL (0.6-1.0)
[2020-03-10 16:06] LABS: POTASSIUM 6.4 mmol/L (3.5-5.1)
[2020-03-10 16:24] LABS: HEMATOCRIT 36.5 % (37.0-47.0); HEMOGLOBIN 11.7 gm/dL (12.0-15.0); MCH 26.2 pg (26.0-34.0); MCHC 32.1 g/dL (28.0-37.0); MCV 81.6 fL (80.0-100.0); RBC 4.47 mil/uL (4.20-5.00); RDW 18.6 % (10.5-14.5); WBC 15.3 thou/uL (4.0-11.0)
[2020-03-10 17:09] VITALS: BP 140/76
[2020-03-10 17:34] VITALS: BP 114/71
[2020-03-10 19:27] LABS: CREATININE 1.8 mg/dL (0.6-1.0)
[2020-03-10 19:29] LABS: POTASSIUM 6.1 mmol/L (3.5-5.1)
--- NOTE | 2020-03-10 19:48 | NUR ---
Received Critical Lab Report of Potassium 6.1. Called Dr March's answering service, gave this information to Rodolfo.
[2020-03-10 20:05] VITALS: BP 126/73
--- NOTE | 2020-03-11 03:27 | NUR ---
VSS-AFEBRILE. LEFT SIDED FLACCIDITY. ALERT AND ORIENTED, LUNGS CLEAR-ROOM AIR. TURNED AND OFFERED ORAL HYDRATION EVERY TWO HOURS FOR COMFORT. FALL PRECAUTIONS IN PLACE.
[2020-03-11 06:05] LABS: URINE BILIRUBIN NEGATIVE (Negative); URINE BLOOD TRACE (Negative); URINE CLARITY CLEAR; URINE COLOR YELLOW; URINE GLUCOSE-RANDOM* NEGATIVE (Negative); URINE KETONES NEGATIVE (Negative); URINE NITRITE-REFLEX NEGATIVE (Negative); URINE PROTEIN (DIPSTICK) NEGATIVE (Negative); URINE SPECIFIC GRAVITY 1.025 (1.005-1.035); URINE UROBILINOGEN 0.2 E.U./dl (0.2-1.0)
[2020-03-11 06:06] LABS: URINE LEUKOCYTES-REFLEX 3+ (Negative)
[2020-03-11 06:18] LABS: CASTS None Seen /LPF (None Seen); MUCUS 0-3 Light strn/LPF (None Seen); SQUAMOUS 4-10 Moderate /LPF (0-3)
[2020-03-11 06:19] LABS: BACTERIA-REFLEX 1-9 Few /HPF (None Seen); CRYSTALS None Seen /LPF (None Seen); URINE RBC 0-2 Rare /HPF (0-2)
[2020-03-11 06:48] LABS: HEMATOCRIT 38.3 % (37.0-47.0); MCH 26.2 pg (26.0-34.0); MCHC 31.3 g/dL (28.0-37.0); MCV 83.6 fL (80.0-100.0); RBC 4.57 mil/uL (4.20-5.00); RDW 18.9 % (10.5-14.5); WBC 13.4 thou/uL (4.0-11.0)
[2020-03-11 07:04] LABS: CALCIUM 10.8 mg/dL (8.5-10.1); CREATININE 1.7 mg/dL (0.6-1.0); POTASSIUM 5.5 mmol/L (3.5-5.1)
[2020-03-11 07:47] VITALS: BP 132/79
--- NOTE | 2020-03-11 09:20 | EKG ---
[facility] [place] [address] ELECTROCARDIOGRAM REPORT Name: KOBY MCCARTHY Room #: 464-P ADM IN M.R.#: [id number] Admission: 03/10/20 Attend Phys: Mildred Rivera MD Discharge: Date of : 58 Report #: [id number] THIS REPORT FOR: cc: Derek Lofton MD, Ramilo MD Lundgren,Murtaza Oakes MD [facility] ~ THIS REPORT FOR: //name// [facility] ED Test Date: 2020-03-10 Test Time: 16:54:45 Pat Name: KOBY MCCARTHY Department: Room: 464 Gender: F Splunk Dashboard Developer: [email or web address] : 1960 Requested By: Rufino Eason Order Number: [id number] MD: Murtaza Corona Measurements Intervals [place] Rate: 89 P: 41 [place]: 169 QRS: 28 QRSD: 74 T: 207 QT: 323 QTc: 393 Interpretive Statements Sinus rhythm Nonspecific ST and T wave abnormality Compared to ECG 01/04/2020 09:54:55 Early R wave progression no longer present Electronically Signed On 03-11-2020 9:19:51 CDT by Murtaza Corona [email or web address] <ELECTRONICALLY SIGNED> By: Murtaza Corona MD, [facility] 03/11/20 0919 [id number] [id number] Murtaza Corona MD, [facility] /EPI
--- NOTE | 2020-03-11 14:23 | NUR ---
FAXED CLINICAL UPDATE TO [facility] SPOKE WITH NAKITA IN ADM SHE RECEIVED UPDATE. IF PT DISCHARGES OVER WEEKEND PLEASE FAX DC ORDERS/SUMMARY TO [phone] AND CALL REPORT TO [phone].
--- NOTE | 2020-03-11 15:17 | NUR ---
PT ADMITTED RELATED TO HIGH POTATSSIUM LEVELS. CM REVIEWED CHART AND SPOKE WITH CARE TEAM. CM CALLED AND SPOKE WITH PT'S SON DARRYL THIS DAY. HE INDICATED THAT HE HAD JUST BEEN UP VISITING HIS MOM. HE CONFIRMED THAT SHE RESIDES OVER AT [facility] IN [facility]. HE INDICATED THAT THE PLAN IS FOR PT TO RETURN THERE ONCE MEDICALLY STABLE. CM INDICATED THAT CARE TEAM STATED SHE IS PROGRESSING AND RESPONDING WELL TO TREATMENT AND MIGHT BE MEDICALLY STABLE TO RETURN TO [facility] TOMORROW. SHOULD PT BE MEDICALLY STABLE TO TO FACILITY TOMORROW CALL [facility] AT . ORDERS WILL NEED TO BE FAXED TO REPORT CALLED TO . CHART COPY WILL NEED TO BE MADE. CM TO FOLLOW INDICATED WITH DC PLANNING.
[2020-03-11 15:52] VITALS: BP 140/85
--- NOTE | 2020-03-11 20:41 | NUR ---
Assumed patient care at 0715. Vital signs stable, LSCTA, BS x's 4, ABD soft and non-tender. External Catheter is in place; good output. Patient denies pain. Son, Douglas was here for part of the day. He put his name on the board in her room (it is listed in computer as well). Douglas would like to be notified of any questions or information about his mothers care. Douglas would like to know why Atorvastatin was stopped on patient's last visit at this facility. Patient had an appointment with her Operations Scheduler last Saturday, son was present. Operations Scheduler wants patient to continue on this medication. Patient will swallow medications whole when son is here. When son is not here, she clamps her mouth shut. Patient also noted to be "pocketing food" this evening. She was able to finally finish chewing up what was left in her mouth with "lots of coaxing" per this nurse. Patient has been a total care/feeder patient during this stay. This nurse observed her eating her chocolate pudding with a spoon without assistance, after trying to assist her with her Dinner.
[2020-03-11 21:50] VITALS: BP 125/89
--- NOTE | 2020-03-12 03:36 | NUR ---
PATIENT AOX1 FORGETFUL AND CONFUSED. PATIENT IS HOLDING FOOD IN THE MOUTH. PATIENT ENCOURAGED TO SWALLOW FOOD AND MEDICATION AND TAKES TOO LONG TO FOLLOW COMMANDS. PATIENT SLEEPY THIS SHIFT. FALL PRECAUTION IN PLACE. PATIENT IN BED ASLEEP AT THIS TIME BREATHING REGULAR AND UNLABOURED.
[2020-03-12 06:50] LABS: ABSOLUTE NEUTROPHILS 9.4 thou/uL (1.4-8.2); BASOPHILS 0.6 % (0.0-2.0); EOSINOPHILS 2.2 % (0.0-3.0); HEMATOCRIT 31.5 % (37.0-47.0); LYMPHOCYTES 26.1 % (24.0-44.0); MCH 26.1 pg (26.0-34.0); MCHC 31.3 g/dL (28.0-37.0); MCV 83.6 fL (80.0-100.0); MONOCYTES 6.2 % (1.0-8.0); PLATELET COUNT 196 thou/uL (150-400); POLYS 64.9 % (36.0-66.0); RBC 3.77 mil/uL (4.20-5.00); RDW 18.9 % (10.5-14.5); WBC 14.4 thou/uL (4.0-11.0)
[2020-03-12 07:03] LABS: HEMOGLOBIN 9.9 gm/dL (12.0-15.0)
[2020-03-12 07:30] LABS: ALBUMIN 2.9 g/dL (3.4-5.0); CALCIUM 9.7 mg/dL (8.5-10.1); CREATININE 1.4 mg/dL (0.6-1.0); PHOSPHORUS 3.8 mg/dL (2.5-4.9); POTASSIUM 3.6 mmol/L (3.5-5.1)
[2020-03-12 08:35] VITALS: BP 141/70
[2020-03-12 11:47] LABS: ANISOCYTOSIS 2+
[2020-03-12 16:27] VITALS: BP 118/60
--- NOTE | 2020-03-12 20:00 | NUR ---
Assumed pt care at 7am.Assessment completed.vss.Repositioned pt q2h in bed for comfort.Pt has poor appetite and sometimes pocket meds in her cheek but later swallow.Dr Hernandez here,order noted.Electrolytes report was okay and wnl today. Will continue to monitor.
[2020-03-12 21:59] VITALS: BP 121/70
[2020-03-13 07:49] LABS: ALBUMIN 2.8 g/dL (3.4-5.0); CREATININE 1.2 mg/dL (0.6-1.0); PHOSPHORUS 3.1 mg/dL (2.5-4.9)
--- NOTE | 2020-03-13 07:53 | NUR ---
RECIEVED CARE OF THIS PATIENT AT 1900. PATIENT ALERT AND ORIENTED [place]. HAS EXTERNAL CATH THAT IS PATENT. REMAINS ON BEDREST. IV PATENT WITH FLUIDS INFUSING. WEAK ON L SIDE. ACCUCHECK WAS 179, RECEIVED 3UNITS LISPRO INSULIN. PATIENT HAS PACEMAKER IN UPPER L CHEST. TAKES MEDS CRUSHED WITH APPLESAUCE. DENIES PAIN. SLEPT OFF AND ON DURING NIGHT.
[2020-03-13 07:56] LABS: POTASSIUM 2.4 mmol/L (3.5-5.1)
[2020-03-13 09:17] VITALS: BP 116/76
[2020-03-13 12:00] VITALS: BP 116/76
[2020-03-13 13:04] LABS: CHOLESTEROL 180 mg/dL (<200); HDL CHOLESTEROL 31 mg/dL (>40); LDL CHOLESTEROL 117 mg/dL (<100); TC:HDL 5.8 Ratio (Not establshd); TRIGLYCERIDE 160 mg/dL (<150); VLDL 32 mg/dL (<40)
[2020-03-13 13:31] LABS: HEMATOCRIT 29.8 % (37.0-47.0); HEMOGLOBIN 9.9 gm/dL (12.0-15.0)
[2020-03-13 15:01] LABS: MAGNESIUM 1.5 mg/dL (1.8-2.4)
--- NOTE | 2020-03-13 16:13 | NUR ---
ASSUMED PT CARE AT 0700. PT ALERT X ORIENTED X SELF. ON ROOM AIR. HAS FEMALE EXT CATHETER. MEDS CRUSHED AND GIVEN WITH APPLE SAUCE. SCD'S ON. IV ON RT FA WITH 5%DEX AND NS RUNNING AT70 ML/HR/. PT SAID PAIN IN HER HAND AND PAIN WAS CONTROLLED BY TYLENOL. PT'S SON WAS IN THE ROOM IN THE MORNING. POTASSIUM LEVEL MWAS LOW (CRITICAL). ORDER FOR STOOL SAMPLE FOR OCCULT BLOOD. CALL LIGHT IN REACH. FALL PRECT IN PLACE. WILL CONT TO MONITOR.
[2020-03-13 17:30] VITALS: BP 109/79
[2020-03-13 19:39] VITALS: BP 114/74
--- NOTE | 2020-03-14 03:23 | NUR ---
ASSUMED CARE OF PT AT APPROXIMATELY 1900. PT IS A/O X1. PT C/O PAIN TO RIGHT HAND. PRN PAIN MEDICATION GIVEN DIRECTED. VSS AT THIS TIME. PT IS CURRENTLY LYING IN HER BED AND APPEARS TO BE SLEEPING. FALL PRECAUTIONS ARE IN PLACE, CALL LIGHT IS WITHIN REACH. WILL CONTINUE TO MONITOR.
[2020-03-14 06:19] LABS: ABSOLUTE NEUTROPHILS 7.6 thou/uL (1.4-8.2); BASOPHILS 0.5 % (0.0-2.0); EOSINOPHILS 1.1 % (0.0-3.0); HEMATOCRIT 29.7 % (37.0-47.0); HEMOGLOBIN 9.8 gm/dL (12.0-15.0); LYMPHOCYTES 27.6 % (24.0-44.0); MCH 26.6 pg (26.0-34.0); MCHC 32.9 g/dL (28.0-37.0); MCV 80.8 fL (80.0-100.0); PLATELET COUNT 204 thou/uL (150-400); POLYS 65.8 % (36.0-66.0); RBC 3.67 mil/uL (4.20-5.00); RDW 18.1 % (10.5-14.5); WBC 11.5 thou/uL (4.0-11.0)
[2020-03-14 06:36] LABS: ALBUMIN 2.7 g/dL (3.4-5.0); CREATININE 1.1 mg/dL (0.6-1.0); PHOSPHORUS 2.5 mg/dL (2.5-4.9); POTASSIUM 3.5 mmol/L (3.5-5.1)
[2020-03-14 06:37] LABS: URINE BILIRUBIN NEGATIVE (Negative); URINE BLOOD 1+ (Negative); URINE CLARITY CLEAR; URINE COLOR YELLOW; URINE GLUCOSE-RANDOM* NEGATIVE (Negative); URINE KETONES NEGATIVE (Negative); URINE NITRITE-REFLEX NEGATIVE (Negative); URINE PROTEIN (DIPSTICK) NEGATIVE (Negative); URINE UROBILINOGEN 0.2 E.U./dl (0.2-1.0)
[2020-03-14 06:38] LABS: URINE LEUKOCYTES-REFLEX 2+ (Negative)
[2020-03-14 08:03] LABS: CASTS None Seen /LPF (None Seen); MUCUS 0-3 Light strn/LPF (None Seen); SQUAMOUS 4-10 Moderate /LPF (0-3)
[2020-03-14 08:04] LABS: BACTERIA-REFLEX 1-9 Few /HPF (None Seen); CRYSTALS None Seen /LPF (None Seen); URINE RBC 0-2 Rare /HPF (0-2); URINE WBC-REFLEX 0-5 Rare /HPF (0-5)
[2020-03-14 08:09] VITALS: BP 117/76
[2020-03-14 12:00] VITALS: BP 147/82
--- NOTE | 2020-03-14 13:40 | NUR ---
GI WAS CONSULTED RELATED TO CONSTIPATION/ABD PAIN. PT HAD KUB AND ABDOMINAL XRAY TODAY. GI PLANNING EGD IN AM. COVID TEST ORDERED. CLINICAL UPDATES FAXED TO [facility]. CM TO FOLLOW INDICATED WITH DC PLANNING.
--- NOTE | 2020-03-14 15:36 | NUR ---
WOUND CONSULT; THE PATIENT WAS ASSESSED AND A STAGE 2 PRESSURE WOUND TO THE RIGHT HEEL WAS NOTED. PALE WOUND BED. THERE ARE SEVERAL AREAS TO THE SACRUM AND BUTTOCKS CONSISTANT WITH PRESSURE AND OR FRICTION. NO INFECTION BUT THE WOUNDS ARE CONTAMINATED WITH STOOL. THE PATIENT IS WEARING PRAFO BOOTS. RECOMMENDATION; 1-LOW AIR LOSS PUMP 2-Q2H TURING 3-ZGUARD BID TO SACRUM/BUTTOCKS 4-XEROFORM GAUZE,COVERED WITH A BORDER FOAM CHANGE M/W/F PRN
[2020-03-14 15:50] VITALS: BP 147/82
[2020-03-14 19:50] VITALS: BP 129/86
--- NOTE | 2020-03-14 20:55 | NUR ---
ASSUMED PT CARE AT 0700.ON ROOM AIR. PT ALERT TO SELF. ON EXT FEM CATHETER.HAD BM TODAY. TOTAL CARE. Q X 2 TURNS. PAIN PARTIALLY CONTROLLED BY FENTANYL. PT NOTED ABDOMINAL AND BACKPAIN. XRAY ABD AND RENAL US DONE. PT WAS NPO MOST OF THE DAY TODAY EXCEPT MEDICATION. PT WAS REFUSING TO DRINK THE ORDER OF ELECTROLETE FOR BOWEL PREP, SHE WAS KEEP ON ASKING FOR FOOD. DOCTOR NOTIFIED. DOCTOR SAID TO GIVE PATIENT SOMETHING TO EAT FOR DINNER ON TELEPHONIC CONVERSATION. FOOD WAS GIVEN FROM [employer] IT WAS PASSED 1800. TALKED TO PT'S SON. PT SON GAVE THE NURSE CONSENT (THROUGH TELEPHONE) TO SIGN THE CONSENT FORM FOR TOMORROW'S PROCED WITH ANOTHER NURSE WITNESSING. SON ALSO TALKED TO THE COLLECTION TEAM LEAD.SHIFT REPORT GIVEN TO [facility] NURSE.
--- NOTE | 2020-03-15 04:29 | NUR ---
ASSUMED CARE OF PT AT 1900. PT IS A/O X1. IS VERY ANXIOUS AND ANGRY THIS EVENING. THREATENING STAFF MEMBERS ON DAY SHIFT THAT SHE WOULD "SLAP HER FACE" NOTIFIED AGRICULTURAL ECONOMICS PROFESSOR OF AGITATION AND RESTLESSNESS. PRN ORDERS GIVEN. PT REFUSED ALL NAT LIQUID TONIGHT STATING "IM NOT DRINKING THAT NASTY STUFF, GET IT OUT OF MY FACE" PT C/O GENERALIZED PAIN ALL OVER. PRN PAIN MEDICATION GIVEN DIRECTED. Z GUARD APPLIED TO BOTTOM, AND OTHER DRESSINGS CHANGED TO HEEL. PT IS NOW CURRENTLY LYING IN HER BED AND APPEARS TO BE SLEEP. FALL PRECAUTIONS ARE IN PLACE, VSS, SCD'S AND PRAFO BOOTS ARE APPLIED. WILL CONTINUE TO MONITOR.
[2020-03-15 06:47] LABS: ABSOLUTE NEUTROPHILS 5.7 thou/uL (1.4-8.2); BASOPHILS 0.5 % (0.0-2.0); EOSINOPHILS 2.8 % (0.0-3.0); HEMATOCRIT 30.5 % (37.0-47.0); LYMPHOCYTES 35.9 % (24.0-44.0); MCH 26.3 pg (26.0-34.0); MCHC 32.9 g/dL (28.0-37.0); MCV 80.2 fL (80.0-100.0); MONOCYTES 4.7 % (1.0-8.0); PLATELET COUNT 190 thou/uL (150-400); POLYS 56.1 % (36.0-66.0); RBC 3.81 mil/uL (4.20-5.00); RDW 17.6 % (10.5-14.5); WBC 10.1 thou/uL (4.0-11.0)
[2020-03-15 07:17] LABS: CALCIUM 9.4 mg/dL (8.5-10.1); MAGNESIUM 1.8 mg/dL (1.8-2.4); PHOSPHORUS 2.7 mg/dL (2.5-4.9); POTASSIUM 3.2 mmol/L (3.5-5.1)
[2020-03-15 07:30] VITALS: BP 124/80
--- NOTE | 2020-03-15 11:50 | NUR ---
PT WAS TO HAVE AN EGD THIS DAY BUT COVID TEST HADN'T BEEN DONE SO EGD RESCHEDULED PENDING COVID TEST RESULTS. CM TO FOLLOW INDICATED WITH DC PLANNING.
[2020-03-15 12:53] VITALS: BP 124/80
[2020-03-15 14:50] VITALS: BP 138/92
--- NOTE | 2020-03-15 16:54 | NUR ---
ASSUMED CARE OF PARTIENT AT SHIFT CHANGE. ASSESSMENT CHARTED. MEDS GIVEN PER MAR. VSS. PATIENT A&OX3 BUT SLEEPY AT THIS TIME. PATIENT SEEMS A BIT AGITATED. PATIENT REFUSED LUNCH. STABLE FSBS. PATIENT CLEANED UP AND ZGUARD APPLIED TO BOTTOM. Q2 TURNS AND FREQUENT ROUNDING COMPLETED. VOICES NO OTHER NEEDS BUT REQUESTED "A BIG FAT JUICY BURGER"; WILL CONTINE TO MONITOR AND FOLLOW POC. FALL PRECAUTIONS IN PLACE
--- NOTE | 2020-03-15 18:00 | NUR ---
i AGREE WITH NURSING NOTE AND NURSING ASSESSMENT DONE BY SUSHANT/LEATHER GOODS II ASSEMBLER.
[2020-03-15 20:21] VITALS: BP 148/87
--- NOTE | 2020-03-16 05:56 | NUR ---
ASSUMED CARE OF PT AT APPROXIMATELY 1900. PT IS A/O X1. PT SEEMS AGITATED AND EASILY BOTHERED WITH CARES. PT BLOOD SUGAR WAS LOW. PT REFUSED ALL SNACKS OFFERED BUT AGREED TO DRINK SOME APPLE JUICE. BLOOD SUGAR IS STABLE AT THIS TIME. IV INFILTRATED AND WAS REMOVED WITH CATHETER INTACT. NEW IV PLACED. FALL PRECAUTIONS ARE IN PLACE, CALL LIGHT WITHIN REACH. WILL CONTINUE TO MONITOR.
[2020-03-16 08:00] VITALS: BP 115/67
--- NOTE | 2020-03-16 12:18 | NUR ---
WOUND CARE F/U; THE PATIENT IS LIKLEY TO BE DISCHARGED TODAY. THE SACRAL AND BUTTOCKS AREAS ARE STABLE WITH NO S/S OF INFECTION. ALL THE WOUNDS LOOK CLINICALLY BETTER. THE PATIET WAS SOILED WITH URINE RETURNING FROM GI LAB. RN WILL REPLACE THE PUREWICK EXTERNAL FEMALE CATHETER. CURRENT ORDERS REMAIN APPROPRIATE, NO CHANGES NEEDED. RECOMMENDATIONS; 1-ADD A PUREWICK EXT FEMALE CATHETER DISCUSSED WITH RN
[2020-03-16 14:24] LABS: HEMATOCRIT 30.5 % (37.0-47.0); HEMOGLOBIN 10.4 gm/dL (12.0-15.0); MCH 27.4 pg (26.0-34.0); MCHC 34.1 g/dL (28.0-37.0); MCV 80.2 fL (80.0-100.0); RBC 3.8 mil/uL (4.20-5.00); RDW 17.8 % (10.5-14.5); WBC 9.7 thou/uL (4.0-11.0)
[2020-03-16 14:58] LABS: CALCIUM 9.2 mg/dL (8.5-10.1); CREATININE 1.1 mg/dL (0.6-1.0); MAGNESIUM 1.6 mg/dL (1.8-2.4)
[2020-03-16 15:02] LABS: POTASSIUM 2.9 mmol/L (3.5-5.1)
[2020-03-16 15:06] VITALS: BP 105/63
--- NOTE | 2020-03-16 16:25 | NUR ---
FAXED CLINICAL UPDATE TO [facility] SPOKE WITH BRITTANIE IN ADM SHE RECEIVED UPDATE. DP TO FOLLOW.
--- NOTE | 2020-03-16 16:26 | NUR ---
PT HAD EGD THIS DAY. CARE TEAM HAD INDICATED THAT PT WOULD LIKELY BE MEDICALLY STABLE TO DC BACK TO [facility] AFTER PROCEDURE THIS DAY. PHYSICIAN INDICATED THAT PT'S POTASSIUM IS CRITICALLY LOW AND THEY WILL WORK TO REPLACE IT AND TAKE LABS AGAIN IN THE AM. CM NOTIFIED [facility]. CM TO FOLLOW INDICATED WITH DC PLANNING.
--- NOTE | 2020-03-16 17:56 | NUR ---
ASSESSMENT CHARTED - MEDS PER OCT - PT WITH LOW K+ THIS AFTERNOON - GIVEN 40 MEQ PO X 1 ANOTHER DOSE TO BE GIVEN THIS EVEINING - PT ALSO GIVEN MAG 2 GR ORDERED. PT REFUSING MEDS AT TIMES THIS SHIFT. IV FLUIDS D/C'D ORDERED. PT HAD EGD COMPLETED THIS AM - PT WITH GASTRITIS AND ULCER PT HAS NOT EATEN WELL TODAY. EEN SATING THAT SHE WANTS A CHEESEBURGER AND FRIES. ACCUCHECKS S CHARTED. NO COVERAGE REQUIRED. PT INCONT OF URINE AND LEW X 3 TIMES TODAY. PROFO BOOTS REMAIN INSITU - WOUND CARE TENDED TO DRESSING CHANGE THIS SHIFT. APPEARS TO BE RESTING AT THE PRESENT TIME.
[2020-03-16 21:15] VITALS: BP 103/60
--- NOTE | 2020-03-17 06:17 | NUR ---
PT IS ALERT TO SELF AND CONFUSED. PT HAS AN IV IN RIGHT WRIST. PT IS REFUSING MEDS TREATMENT AND FOOD. PT REFUSES TO BE CLEANED. PT THREATENS TO HIT. PT DID NOT EAT. BEHAVIORAL HEALTH ASSOCIATE TOOK GLUCOSE 63. INFORMED CHARGE NURSE. RETESTED - 123. TRIED TO GIVE APPLE JUICE WITH SUGAR. PT REFUSED. CHARGE NURSE ADMINISTERED DEXTROSE 50% IV PUSH. WILL CONTINUE .
[2020-03-17 08:10] VITALS: BP 116/63
[2020-03-17 10:54] LABS: HEMOGLOBIN 10.2 gm/dL (12.0-15.0); MCH 26.5 pg (26.0-34.0); MCHC 32.9 g/dL (28.0-37.0); MCV 80.6 fL (80.0-100.0); RBC 3.84 mil/uL (4.20-5.00); RDW 17.6 % (10.5-14.5)
[2020-03-17 11:08] LABS: CALCIUM 9.4 mg/dL (8.5-10.1); MAGNESIUM 1.9 mg/dL (1.8-2.4); POTASSIUM 3.2 mmol/L (3.5-5.1)
[2020-03-17 14:50] VITALS: BP 97/57
[2020-03-17] MEDS ORDERED: MACROBID 100 M100 M1 PO (15:04)
[2020-03-17] MEDS ORDERED: PROTONIX40 M1 PO (15:06)
[2020-03-17] MEDS ORDERED: MAG-OXIDE400 MG PO (15:10)
--- NOTE | 2020-03-17 15:54 | NUR ---
PT DISCHARGING TODAY TO [facility] FAXED DC ORDERS/SUMMARY TO FACILITY SPOKE WITH BRITTANIE IN ADM SHE RECEIVED ORDERS AND ARRANGED TRANSPORTATION BY [facility] FOR 1700 TODAY. NOTIFIED PT'S SON (DARRYL) OF DC AND TIME OF TRANSPORT. UNIT NOTIFIED AND CHART COPY PER US. RN TO CALL REPORT TO [phone].
--- NOTE | 2020-03-17 16:15 | NUR ---
CARE TEAM INDICATED THAT PT IS MEDICALLY STABLE TO DC BACK TO [facility] THIS DAY. CHART COPY ORDERED. ORDERS FAXED. SON WAS NOTIFIED IS AWARE AND AGREEABLE. REPORT WAS CALLED TO FACILITY. STEVE FRAGA ARRANGED FOR 1700. NO OTHER CM INTERVENTION INDICATED. CASE CLOSED.
--- NOTE | 2020-03-17 17:03 | NUR ---
ASSUMED CARE OF PATIENT AT 0700. PATIENT'S SON AT THE BEDSIDE FOR THE MAJORITY OF THE DAY. PATIENT REFUSED MOST MEDS AND PROCEDURES DURING THE MORNING UNTIL HER SON WAS PRESENT AND ENCOURAGED HER TO PARTICIPATE. PATIENT REFUSES TURNS AND TO BE CLEANED UP UNTIL HER SON WAS PRESENT. EXTERNAL PUREWICK CATHETER PLACED ON THE PATIENT TWICE AND THE PATIENT REMOVED THIS BOTH TIMES. PATIENT'S BLOOD SUGAR WAS LOW ENOUGH NOT TO REQUIRE ANY INSULIN COVERAGE. PATIENT'S POTASSIUM SUPPLEMENTED PO. PATIENT CONTINUED ON A [facility] SOFT DIET AND DID WELL WITH THIN LIQUIDS. PATIENT TO BE TRANSFERRED TO [facility] AT 1730 AND REPORT WAS CALLED TO LIZBETH. CHART COPY MADE. IV REMOVED. TELE REMOVED.
--- NOTE | 2020-03-18 08:05 | P ---
[facility] [place] [address] PROCEDURE REPORT Name: KOBY MCCARTHY Room #: 464-P [facility] IN M.R.#: [id number] Admission: 03/10/20 Attend Phys: Mildred Rivera MD Discharge: 03/17/20 Date of : 58 Report #: [id number] THIS REPORT FOR: cc: Derek Lofton MD, Ramilo MD McElhinney, Christian C. MD ~ CC: Dr. Nicole Rivera DATE OF SERVICE: 03/16/2020 PROCEDURE PERFORMED: Upper endoscopy. HISTORY OF PRESENT ILLNESS: The patient is a 60-year-old female with a history of abdominal pain, also anemia, stool Hemoccult negative. The patient is on Eliquis, last dose last evening for history of CVA. COVID testing was done. DESCRIPTION OF PROCEDURE: The risks and benefits of the procedure were explained to the patient and her family, those risks including but not limited to bleeding, perforation, the risk of sedation. They understood these risks and gave informed consent. Sedation was given using propofol per anesthesia. Next, using a standard Olympus upper endoscope, the scope was placed in the patient's mouth and advanced under direct vision through the esophagus, stomach and into the second portion of the duodenum. The larynx was normal in appearance. The esophagus was normal throughout. The GE junction was normal. Overall, the gastric mucosa was normal in the fundus and body. There was a mild gastritis noted in the gastric antrum. I was not able to obtain biopsies as the patient is on Eliquis at this time. The pylorus was normal and patent. In the duodenal bulb, first and second portion, multiple small superficial, clean white based ulcers with duodenitis was noted. There was no evidence of bleeding, otherwise negative. The scope was then withdrawn and the procedure terminated. The patient tolerated the procedure well. IMPRESSION: 1. Multiple small superficial white duodenal ulcers. No evidence of bleeding. 2. Mild gastritis. 3. Otherwise, normal upper endoscopy. RECOMMENDATIONS: 1. Recommend daily PPI therapy. 2. We will start daily PPI therapy. 3. We will check stool for H. pylori antigen. [facility] [address] [place] [address] PROCEDURE REPORT Name: KOBY MCCARTHY Room #: 464-P [facility] IN M.R.#: [id number] Admission: 03/10/20 Attend Phys: Mildred Rivera MD Discharge: 03/17/20 Date of : 58 Report #: [id number] Thank you for allowing me to participate in her care. <ELECTRONICALLY SIGNED> By: Jake Arias MD 03/18/20 0805 1110 1833 Jake Arias MD /nt
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
== END 2020-03-17 17:38 | DRG 682 ==
LOC: ER 15:22 → EROBS 17:24 → 4W 17:24
PROVIDERS: Emergency Medicine; Hospitalist; Internal Medicine; ADMIT Internal Medicine; ATTEND Internal Medicine
PROC: 0DJ08ZZ Inspection of Upper Intestinal Tract, Via Natural or Artificial Opening Endoscopic (ICD-10-PCS; principal; 2020-03-16)
DX: N17.0 Acute kidney failure with tubular necrosis (principal); E43 Unspecified severe protein-calorie malnutrition; E87.0 Hyperosmolality and hypernatremia; N39.0 Urinary tract infection, site not specified; I69.354 Hemiplegia and hemiparesis following cerebral infarction affecting left non-dominant side; K26.7 Chronic duodenal ulcer without hemorrhage or perforation; K29.70 Gastritis, unspecified, without bleeding; E86.0 Dehydration; F41.9 Anxiety disorder, unspecified; F32.9 Major depressive disorder, single episode, unspecified; I25.10 Atherosclerotic heart disease of native coronary artery without angina pectoris; G40.909 Epilepsy, unspecified, not intractable, without status epilepticus; E87.5 Hyperkalemia; G47.00 Insomnia, unspecified; E87.8 Other disorders of electrolyte and fluid balance, not elsewhere classified; D64.9 Anemia, unspecified; E87.6 Hypokalemia; K59.00 Constipation, unspecified; R13.10 Dysphagia, unspecified; Z20.828 Contact with and (suspected) exposure to other viral communicable diseases; Z83.3 Family history of diabetes mellitus; Z90.49 Acquired absence of other specified parts of digestive tract; Z95.0 Presence of cardiac pacemaker; Z90.710 Acquired absence of both cervix and uterus; Z88.6 Allergy status to analgesic agent; Z88.1 Allergy status to other antibiotic agents; Z87.891 Personal history of nicotine dependence
CPT/HCPCS: 10045; 62110; 62900; 70005

== ENCOUNTER 2021-01-23 21:35 | Emergency (ER) | payer BC, OTHER ==
[~2021-01-23] VITALS: Ht 170.2 cm; Wt 91.7 kg
[~2021-01-23 21:35] MED LIST changes: +MACROBID 100 M100 M1 PO; +MAG-OXIDE400 MG PO; +PROTONIX40 M1 PO
[2021-01-23 21:57] LABS: ABSOLUTE NEUTROPHILS 6.1 thou/uL (1.4-8.2); BASOPHILS 1.1 % (0.0-2.0); EOSINOPHILS 3.9 % (0.0-3.0); HEMATOCRIT 32.8 % (37.0-47.0); HEMOGLOBIN 10.7 gm/dL (12.0-15.0); LYMPHOCYTES 28.3 % (24.0-44.0); MCH 25.4 pg (26.0-34.0); MCHC 32.7 g/dL (28.0-37.0); MCV 77.5 fL (80.0-100.0); MONOCYTES 4.5 % (1.0-8.0); PLATELET COUNT 216 thou/uL (150-400); POLYS 62.2 % (36.0-66.0); RBC 4.23 mil/uL (4.20-5.00); RDW 14.7 % (10.5-14.5); WBC 9.9 thou/uL (4.0-11.0)
[2021-01-23 22:02] LABS: CALCIUM 9.7 mg/dL (8.5-10.1); CREATININE 1.4 mg/dL (0.6-1.0); POTASSIUM 4.3 mmol/L (3.5-5.1)
[2021-01-23 22:09] LABS: ALBUMIN 3.7 g/dL (3.4-5.0); TOTAL BILIRUBIN 0.2 mg/dL (0.2-1.0); TOTAL PROTEIN 7.6 g/dL (6.4-8.2)
[2021-01-23 22:56] LABS: URINE BILIRUBIN NEGATIVE (Negative); URINE BLOOD 1+ (Negative); URINE CLARITY CLEAR; URINE COLOR YELLOW; URINE GLUCOSE-RANDOM* NEGATIVE (Negative); URINE KETONES NEGATIVE (Negative); URINE LEUKOCYTES-REFLEX TRACE (Negative); URINE NITRITE-REFLEX NEGATIVE (Negative); URINE PROTEIN (DIPSTICK) TRACE (Negative); URINE UROBILINOGEN 0.2 E.U./dl (0.2-1.0)
[2021-01-23 23:10] LABS: BACTERIA-REFLEX 1-9 Few /HPF (None Seen); CASTS None Seen /LPF (None Seen); CRYSTALS None Seen /LPF (None Seen); MUCUS 4-6 Moderate strn/LPF (None Seen); SQUAMOUS 0-3 Few /LPF (0-3); URINE RBC 1-2 Rare /HPF (NONE SEEN); URINE WBC-REFLEX 0-5 Rare /HPF (0-5)
[2021-01-23] MEDS ORDERED: CEPHALEXIN500 MG PO (23:19)
[2021-01-24 00:16] VITALS: BP 167/63
[2021-01-24] MEDS ORDERED: CEPHALEXIN500 MG PO (00:22)
[2021-01-24] MEDS ORDERED: TYLENOL325 M1 PO (01:20)
[2021-01-24] MEDS ORDERED: ARIPIPRAZOLE5 MG PO (01:21)
[2021-01-24] MEDS ORDERED: LIPITOR80 MG PO (01:22)
[2021-01-24] MEDS ORDERED: ARTIFICIAL TEAR15 M4 OPHTHALMIC (01:22)
[2021-01-24] MEDS ORDERED: VITAMIN D310 MC2 PO (01:32)
[2021-01-24] MEDS ORDERED: TUMS200 MG PO (01:34)
[2021-01-24] MEDS ORDERED: LANTUS100 UNIT/M SUBQ (01:36)
[2021-01-24] MEDS ORDERED: REMERON 30 MG T30 M1 PO (01:37)
== END 2021-01-24 00:50 | disposition home or self-care (01) ==
LOC: ER 21:35
PROVIDERS: Nurse Practitioner
DX: R56.9 Unspecified convulsions (principal); N39.0 Urinary tract infection, site not specified; I10 Essential (primary) hypertension; E78.00 Pure hypercholesterolemia, unspecified; Z90.710 Acquired absence of both cervix and uterus; Z98.890 Other specified postprocedural states; Z86.73 Personal history of transient ischemic attack (TIA), and cerebral infarction without residual deficits; Z95.0 Presence of cardiac pacemaker; Z88.1 Allergy status to other antibiotic agents; Z88.5 Allergy status to narcotic agent

== ENCOUNTER 2021-06-23 09:09 | Emergency (ER) | payer BC, OTHER ==
[~2021-06-23] VITALS: Ht 165.1 cm; Wt 89.8 kg
--- NOTE | ~2021-06-23 | EMS ---
[facility] [address] [place] [address] EMS Patient Care Report Name: KOBY MCCARTHY Room #: DEP MATT Raymundo#: [id number] Admission: 06/23/21 Attend Phys: Discharge: 06/23/21 Date of : 58 Report #: [id number] THIS REPORT FOR: //name// Report Transmitted: 06/26/2021 11:59 EMS Care Summary [place], [place]/[facility] Incident [id number] @ 06/23/2021 08:40 Incident Location [address] Patient KOBY MCCARTHY Female, 61 Years 1960 Patient Address [address] [place] [address] [address] [place] [address] Patient History Diabetes,Hypertension (HTN),Pacemaker/AICD,Stroke/CVA,Morbid Obesity,Cardiac Condition - Other, Patient Allergies Morphine,Erythromycin, Patient Medications Amlodipine, Eliquis, ASA, Atorvastatin, Tylenol, Chief Complaint weakness Disposition Transported No Lights/[place] Dispatch Reason Sick Person Transported To [facility] Narrative Arrived to find pt laying in bed talking to T8. Staff stated pt was weak and lethargic today but was her normal self yesterday. Pt states she just does not [address] [address] EMS Patient Care Report Name: KOBY MCCARTHY Room #: DEP Servando#: [id number] Admission: 06/23/21 Attend Phys: Discharge: 06/23/21 Date of : 58 Report #: [id number] feel well. Pt is tracking with eyes and talking in an oriented manner. Pt appears anxious. Pt lifted onto cot using 4-person lift and a sheet. Pt secured to cot with cot straps. Pt placed in back of unit and placed in surgical mask. Pt was initially NSR on 3-lead but transitioned to being paced. Pt paperwork states pt has hx of sick sinus syndrome and a pacemaker. Pt transported without incident. Care to RN, rm 6. Initial Vitals @08:58P: 84,CO: 2,SpO2: 97, @08:57P: 86,BP: 142/75,CO: 2,SpO2: 98, @08:59P: 84,R: 16,BP: 126/68,Pain: 0/10,GCS: 15,Temp: 97.2F,Glucose: 180,SpO2: 98,Revised Trauma: 12, @09:02P: 96,CO: 5,SpO2: 97, Assessments @08:50MENTAL:Place Oriented,Person Oriented,Time Oriented,Event Oriented,SKIN:HEENT:Head/Face: No Abnormalities,Eyes: No Abnormalities,Neck/Airway: No Abnormalities,LUNG SOUNDS:General: No Abnormalities,Left Upper: No Abnormalities,Right Upper: No Abnormalities,Left Lower: No Abnormalities,Right Lower: No Abnormalities,ABDOMEN:General: No Abnormalities,Left Upper: No Abnormalities,Right Upper: No Abnormalities,Left Lower: No Abnormalities,Right Lower: No Abnormalities,PELVIS//GI:No Abnormalities,EXTREMITIES:Left Leg: Paralysis,Left Arm: Paralysis,Right Arm: No Abnormalities,Right Leg: No Abnormalities,PULSE:NEURO:Weakness Left-Sided, Impression Generalized Weakness Procedures @08:50 ALS Assessment Response: UnchangedSucceeded @08:57 3-Lead ECG Response: UnchangedSucceeded Timeline 08:39,Call Received 08:39,Dispatch Notified 08:40,Dispatched 08:41,En Route 08:46,On Scene 08:49,At Patient 08:50,ALS Assessment,Response: UnchangedSucceeded, 08:57,3-Lead ECG,Response: UnchangedSucceeded, 08:57,BP: 142/75 M,PULSE: 86,RR: R,SPO2: 98 Ox,ETCO2: ,BG: ,PAIN: ,GCS: , 08:58,BP: / M,PULSE: 84,RR: R,SPO2: 97 Ox,ETCO2: ,BG: ,PAIN: ,GCS: , 08:59,BP: 126/68 M,PULSE: 84,RR: 16 R,SPO2: 98 Ox,ETCO2: ,B,PAIN: 0,GCS: 15, [facility] [address] [place] [address] EMS Patient Care Report Name: FABIOKOBY O Room #: DEP Zackary#: [id number] Admission: 06/23/21 Attend Phys: Discharge: 06/23/21 Date of : 58 Report #: [id number] 09:02,Depart Scene 09:02,BP: / M,PULSE: 96,RR: R,SPO2: 97 Ox,ETCO2: ,BG: ,PAIN: ,GCS: , 09:04,At Destination 09:13,Call Closed Disclaimer v1.1 Copyright 2020 [employer] This EMS Care Summary contains data elements from the applicable legal record (which may be displayed differently). It is designed to provide pertinent information for the following purposes: continuity of care, clinical quality, and state data reporting. The complete legal record is available to ED staff and administrators of the receiving hospital in [employer] Patient Tracker. All data is provided "as is."
[~2021-06-23 09:09] MED LIST changes: +ARIPIPRAZOLE5 MG PO; +ARTIFICIAL TEAR15 M4 OPHTHALMIC; +CEPHALEXIN500 MG PO; +LIPITOR80 MG PO; +REMERON 30 MG T30 M1 PO; +TUMS200 MG PO; +TYLENOL325 M1 PO; +VITAMIN D310 MC2 PO
[2021-06-23 09:32] LABS: ABSOLUTE NEUTROPHILS 7.1 thou/uL (1.4-8.2); BASOPHILS 0.9 % (0.0-2.0); EOSINOPHILS 2.8 % (0.0-3.0); HEMATOCRIT 32.9 % (37.0-47.0); HEMOGLOBIN 10.7 gm/dL (12.0-15.0); LYMPHOCYTES 15.3 % (24.0-44.0); MCH 24.7 pg (26.0-34.0); MCHC 32.6 g/dL (28.0-37.0); MCV 75.8 fL (80.0-100.0); MONOCYTES 5.1 % (1.0-8.0); PLATELET COUNT 239 thou/uL (150-400); POLYS 75.9 % (36.0-66.0); RBC 4.34 mil/uL (4.20-5.00); RDW 15.7 % (10.5-14.5); WBC 9.4 thou/uL (4.0-11.0)
[2021-06-23 09:50] LABS: CALCIUM 10.2 mg/dL (8.5-10.1); CREATININE 1.1 mg/dL (0.6-1.0); POTASSIUM 3.8 mmol/L (3.5-5.1)
[2021-06-23 10:01] LABS: ALBUMIN 3.5 g/dL (3.4-5.0); TOTAL BILIRUBIN 0.3 mg/dL (0.2-1.0)
[2021-06-23 12:07] LABS: URINE BILIRUBIN NEGATIVE (Negative); URINE BLOOD 3+ (Negative); URINE COLOR YELLOW; URINE GLUCOSE-RANDOM* NEGATIVE (Negative); URINE KETONES TRACE (Negative); URINE PROTEIN (DIPSTICK) 1+ (Negative); URINE UROBILINOGEN 0.2 E.U./dl (0.2-1.0)
[2021-06-23 12:08] LABS: URINE CLARITY CLOUDY; URINE LEUKOCYTES-REFLEX 3+ (Negative); URINE NITRITE-REFLEX POSITIVE (Negative)
[2021-06-23 12:12] LABS: BACTERIA-REFLEX >30 Many /HPF (None Seen); CASTS None Seen /LPF (None Seen); SQUAMOUS >10 Many /LPF (0-3); URINE WBC-REFLEX >25 Many /HPF (0-5)
[2021-06-23 12:13] LABS: CRYSTALS None Seen /LPF (None Seen); URINE RBC 3-10 Few /HPF (NONE SEEN); WBC CLUMPS Few (None Seen)
[2021-06-23 12:22] VITALS: BP 173/80
[2021-06-23] MEDS ORDERED: MACROBID 100 M100 M1 PO (12:22)
--- NOTE | 2021-06-24 07:04 | EKG ---
[place] [address] [facility] [place] [address] ELECTROCARDIOGRAM REPORT Name: MCCARTHYKOBY O Room #: [facility]#: [id number] Admission: 06/23/21 Attend Phys: Discharge: 06/23/21 Date of : 58 Report #: [id number] [facility] ED Test Date: 2021-06-23 Test Time: 09:16:41 Pat Name: KOBY MCCARTHY Department: Room: Gender: F Purification Director: [place] : 1960 Requested By: Que Gregory Order Number: [id number] MD: Mark Toscano Measurements Intervals [place] Rate: 81 P: 37 TX: 217 QRS: 0 QRSD: 94 T: -47 QT: 385 QTc: 447 Interpretive Statements Sinus rhythm Consider left ventricular hypertrophy Borderline T abnormalities, inferior leads Baseline wander in lead(s) III Compared to ECG 03/10/2020 16:54:45 T-wave abnormality now present ST (T wave) deviation no longer present Electronically Signed On 06-24-2021 7:04:06 MAIL PROCESSING EQUIPMENT MECHANIC by Mark Toscano [email or web address] <ELECTRONICALLY SIGNED> By: Mark Toscano MD, [facility] 06/24/21 0704 5 5 Mark Toscano MD, [facility] /EPI
== END 2021-06-23 12:51 ==
LOC: ER 09:09
PROVIDERS: Emergency Medicine
DX: R42 Dizziness and giddiness (principal); Z20.822 Contact with and (suspected) exposure to COVID-19; F41.9 Anxiety disorder, unspecified; F32.9 Major depressive disorder, single episode, unspecified; I25.10 Atherosclerotic heart disease of native coronary artery without angina pectoris; G40.909 Epilepsy, unspecified, not intractable, without status epilepticus; I10 Essential (primary) hypertension; Z90.710 Acquired absence of both cervix and uterus; Z98.890 Other specified postprocedural states; Z79.4 Long term (current) use of insulin; Z79.82 Long term (current) use of aspirin; Z79.899 Other long term (current) drug therapy; Z79.891 Long term (current) use of opiate analgesic; Z88.1 Allergy status to other antibiotic agents; Z88.5 Allergy status to narcotic agent